=== PATIENT | female | born 1985 | race African-American/Black ===

== ENCOUNTER 2016-04-24 16:26 | Inpatient (IN) | payer MEDICAID, OTHER ==
[~2016-04-24] VITALS: Ht 165.1 cm; Wt 111.1 kg
[2016-04-24] MEDS ORDERED: ONDANSETRON HCL/PF 4 MG/2 ML VIAL IVP ONE (17:00)
[2016-04-24] MEDS ORDERED: MORPHINE SULFATE INJ 2 MG/ML DISP.SYRIN IV ONE ×2 (17:00→20:00)
[2016-04-24] MEDS ORDERED: NITROGLYCERIN PACKET 1 GM PACKET TD ONE (17:00)
[2016-04-24] MEDS ORDERED: VANCOMYCIN 1 GM in IV D5W 250 ML IV ONE (17:00)
[2016-04-24 17:35] LABS: BASOPHILS # (AUTO) 0.3 /CMM (0.0-0.2); BASOPHILS % (AUTO) 4.3 % (0.0-2.0); DIFF TOTAL % 100 %; EOSINOPHILS # (AUTO) 0.4 /CMM (0.0-0.7); EOSINOPHILS % (AUTO) 5.3 % (0.0-6.0); HEMATOCRIT 32 % (33-45); HEMOGLOBIN 10.7 g/dL (11.5-14.8); LYMPHOCYTES # (AUTO) 1.4 /CMM (0.8-4.8); LYMPHOCYTES % (AUTO) 20.8 % (20.0-44.0); MEAN CORPUSCULAR HEMOGLOBIN 33 PG (26.0-33.0); MEAN CORPUSCULAR HGB CONC 34 g/dl (31.0-36.0); MEAN CORPUSCULAR VOLUME 97 fL (82-100); MONOCYTES # (AUTO) 0.5 /CMM (0.1-1.30); MONOCYTES % (AUTO) 7.3 % (2.0-12.0); NEUTROPHILS % (AUTO) 62.3 % (43.0-81.0); PLATELET COUNT (AUTO) 155 /CMM (150-450); RED BLOOD CELL COUNT(AUTO) 3.29 MIL/uL (4.0-5.2); WHITE BLOOD COUNT (AUTO) 6.6 K/uL (4.3-11.0)
[2016-04-24 17:44] LABS: ANION GAP 15 (5-14); CALCIUM, SERUM 8.2 mg/dL (8.5-10.1); CARBON DIOXIDE 22 mmol/L (21-32); CHLORIDE 105 mmol/L (98-107); CREATININE 5.8 mg/dL (0.6-1.3); GFR 8 mL/min (>60); GLUCOSE 95 mg/dL (74-106); POTASSIUM 3.3 mmol/L (3.5-5.1); SODIUM SERUM 139 mmol/L (136-145); UREA NITROGEN, BLOOD 76 mg/dL (7-18)
[2016-04-24 17:47] LABS: INR 0.93 (0.87-1.13); PROTHROMBIN TIME 9.8 SECS (9.5-12.7)
[2016-04-24 17:52] LABS: TROPONIN I < 0.017 ng/mL (0.00-0.056)
[2016-04-24 17:56] LABS: ALANINE AMINOTRANSFERASE 11 U/L (12-78); ALBUMIN 3.8 g/dL (3.4-5.0); ASPARTATE AMINOTRANSFERASE 17 U/L (15-37); BILIRUBIN,DIRECT 0.1 mg/dL (0.0-0.2); BILIRUBIN,TOTAL 0.4 mg/dL (0.2-1.0); INDIRECT BILIRUBIN 0.3 mg/dL (0.0-1.1); TOTAL PROTEIN, SERUM 7.5 g/dL (6.4-8.2)
[2016-04-24 18:10] LABS: LACTIC ACID 0.8 mmol/L (0.4-2.0)
[2016-04-24] MEDS ORDERED: MORPHINE SULFATE INJ 4 MG/ML DISP.SYRIN ONE ×2 (18:18→20:14)
[2016-04-24] MEDS ORDERED: ONDANSETRON HCL/PF 4 MG/2 ML VIAL ONE (18:18)
[2016-04-24] MEDS ORDERED: NITROGLYCERIN PACKET 1 GM PACKET ONE (18:18)
[2016-04-24] MEDS ORDERED: IV SET PRIMARY PUMP SET 1 EA INFUS.SET MC ONE (18:19)
[2016-04-24] MEDS ORDERED: ASPI325T2 PO (18:37)
[2016-04-24] MEDS ORDERED: CARV25TA2 PO (18:37)
[2016-04-24] MEDS ORDERED: TOPI-67 PO (18:37)
[2016-04-24] MEDS ORDERED: APIX5TAB PO (18:37)
[2016-04-24] MEDS ORDERED: NIFE60TA83 PO (18:37)
[2016-04-24] MEDS ORDERED: SERT50TA PO (18:37)
[2016-04-24] MEDS ORDERED: HYDR-4077 PO (18:37)
[2016-04-24] MEDS ORDERED: SEVE800T PO (18:37)
[2016-04-24] MEDS ORDERED: AMIT25TA9 PO (18:37)
[2016-04-24] MEDS ORDERED: LABE200T PO (18:42)
[2016-04-24] MEDS ORDERED: CT SWABBABLE VALVE TRANS SET 1 EA INFUS.SET MC ONE (19:03)
[2016-04-24] MEDS ORDERED: IV NS 0.9% 250 ML IV ONE (19:03)
[2016-04-24] MEDS ORDERED: IOHEXOL-350 100 ML VIAL IV ONE (19:03)
[2016-04-24] MEDS ORDERED: MORPHINE SULFATE INJ 2 MG/ML DISP.SYRIN ONE (20:14)
[2016-04-24] MEDS ORDERED: ACETAMINOPHEN 325 MG TABLET PO PRN (20:30)
[2016-04-24] MEDS ORDERED: ONDANSETRON HCL/PF 4 MG/2 ML VIAL IVP PRN (20:30)
[2016-04-24] MEDS ORDERED: FEE PK DOSING 1 MIN EA MC ONE (20:49)
[2016-04-24] MEDS ORDERED: VANCOMYCIN 500 MG in IV D5W 100 ML IV PRN (21:00)
[2016-04-24 21:20] VITALS: BP 158/107
[2016-04-24] MEDS: CARVEDILOL 12.5 MG TABLET PO SCH (21:56)
[2016-04-24] MEDS: APIXABAN 5 MG TABLET PO SCH (21:56)
[2016-04-24] MEDS: HYDROCODONE/APAP 10/325MG 1 EA TABLET PO PRN (21:59)
[2016-04-25 01:20] VITALS: BP 136/82
[2016-04-25] MEDS ORDERED: MORPHINE SULFATE INJ 4 MG/ML DISP.SYRIN ONE (01:34)
[2016-04-25] MEDS: MORPHINE SULFATE INJ 4 MG/ML DISP.SYRIN IV PRN ×3 (01:56→21:57)
[2016-04-25 04:00] VITALS: BP 133/85
[2016-04-25 08:00] VITALS: BP 131/84
[2016-04-25 08:27] LABS: BASOPHILS % (AUTO) 0.2 % (0.0-2.0); DIFF TOTAL % 100 %; EOSINOPHILS # (AUTO) 0.1 /CMM (0.0-0.7); EOSINOPHILS % (AUTO) 1.6 % (0.0-6.0); HEMATOCRIT 27 % (33-45); HEMOGLOBIN 9.1 g/dL (11.5-14.8); LYMPHOCYTES # (AUTO) 0.5 /CMM (0.8-4.8); LYMPHOCYTES % (AUTO) 8.9 % (20.0-44.0); MEAN CORPUSCULAR HEMOGLOBIN 32 PG (26.0-33.0); MEAN CORPUSCULAR HGB CONC 34 g/dl (31.0-36.0); MEAN CORPUSCULAR VOLUME 96 fL (82-100); MONOCYTES # (AUTO) 0.5 /CMM (0.1-1.30); MONOCYTES % (AUTO) 8.2 % (2.0-12.0); NEUTROPHILS % (AUTO) 81.1 % (43.0-81.0); PLATELET COUNT (AUTO) 140 /CMM (150-450); RED BLOOD CELL COUNT(AUTO) 2.83 MIL/uL (4.0-5.2); WHITE BLOOD COUNT (AUTO) 6.2 K/uL (4.3-11.0)
[2016-04-25] MEDS: AMITRIPTYLINE HCL 25 MG TABLET PO SCH (08:35)
[2016-04-25] MEDS: SEVELAMER CARBONATE 800 MG TABLET PO SCH ×3 (08:35→18:25)
[2016-04-25] MEDS: SERTRALINE HCL 50 MG TABLET PO SCH (08:35)
[2016-04-25] MEDS: ASPIRIN 325 MG TABLET PO SCH (08:35)
[2016-04-25] MEDS: TOPIRAMATE 25 MG TABLET PO SCH ×2 (08:36→16:21)
[2016-04-25] MEDS: NIFEdipine XL (30MG) 30 MG TAB PO SCH (08:37)
[2016-04-25] MEDS: LABETALOL HCL (100MG) 100 MG TABLET PO SCH (08:41)
[2016-04-25] MEDS: CARVEDILOL 12.5 MG TABLET PO SCH ×2 (08:42→20:34)
[2016-04-25] MEDS: APIXABAN 5 MG TABLET PO SCH ×2 (08:55→16:21)
[2016-04-25 08:59] LABS: ALBUMIN 3.1 g/dL (3.4-5.0); BILIRUBIN,TOTAL 0.5 mg/dL (0.2-1.0); CALCIUM, SERUM 7.7 mg/dL (8.5-10.1); CREATININE 5.8 mg/dL (0.6-1.3); PHOSPHORUS 4.7 mg/dL (2.5-4.9); POTASSIUM 3.2 mmol/L (3.5-5.1); TOTAL PROTEIN, SERUM 6.5 g/dL (6.4-8.2)
[2016-04-25 09:11] LABS: THYROID STIMULATING HORMONE 1.903 uIU/mL (0.358-3.74)
[2016-04-25] MEDS: hydrALAZINE HCL 50 MG TABLET PO SCH ×2 (09:11→18:22)
[2016-04-25] MEDS ORDERED: EPOETIN ALFA (10,000 UNIT) 10,000 UNIT/ML VIAL SQ ONE (14:00)
[2016-04-25] MEDS ORDERED: Magnesium 1GM/D5W 100ML PREMIX 100 ML IV SCH (14:00)
[2016-04-25] MEDS ORDERED: IV SET PRIMARY PUMP SET 1 EA INFUS.SET MC ONE (14:15)
[2016-04-25 16:00] VITALS: BP 149/89
[2016-04-25 19:52] VITALS: BP 142/63
[2016-04-25 20:00] VITALS: BP 142/63
[2016-04-25] MEDS: HYDROCODONE/APAP 10/325MG 1 EA TABLET PO PRN (23:55)
[2016-04-26] MEDS: MORPHINE SULFATE INJ 4 MG/ML DISP.SYRIN IV PRN ×5 (03:34→22:41)
[2016-04-26] MEDS: HYDROCODONE/APAP 10/325MG 1 EA TABLET PO PRN (06:24)
[2016-04-26 07:24] LABS: BASOPHILS % (AUTO) 0.4 % (0.0-2.0); DIFF TOTAL % 100 %; EOSINOPHILS # (AUTO) 0.1 /CMM (0.0-0.7); EOSINOPHILS % (AUTO) 2.5 % (0.0-6.0); HEMATOCRIT 29 % (33-45); HEMOGLOBIN 9.8 g/dL (11.5-14.8); LYMPHOCYTES # (AUTO) 0.6 /CMM (0.8-4.8); LYMPHOCYTES % (AUTO) 15.8 % (20.0-44.0); MEAN CORPUSCULAR HEMOGLOBIN 33 PG (26.0-33.0); MEAN CORPUSCULAR HGB CONC 34 g/dl (31.0-36.0); MEAN CORPUSCULAR VOLUME 97 fL (82-100); MONOCYTES # (AUTO) 0.4 /CMM (0.1-1.30); MONOCYTES % (AUTO) 12.3 % (2.0-12.0); NEUTROPHILS # (AUTO) 2.4 /CMM (1.8-8.9); PLATELET COUNT (AUTO) 137 /CMM (150-450); RED BLOOD CELL COUNT(AUTO) 2.98 MIL/uL (4.0-5.2); WHITE BLOOD COUNT (AUTO) 3.5 K/uL (4.3-11.0)
[2016-04-26 07:38] LABS: INR 0.98 (0.87-1.13); PROTHROMBIN TIME 10.3 SECS (9.5-12.7)
[2016-04-26 08:00] VITALS: BP 138/58
[2016-04-26 08:03] LABS: PHOSPHORUS 4.2 mg/dL (2.5-4.9); POTASSIUM 3.1 mmol/L (3.5-5.1)
[2016-04-26] MEDS: hydrALAZINE HCL 50 MG TABLET PO SCH ×2 (09:00→18:45)
[2016-04-26] MEDS: AMITRIPTYLINE HCL 25 MG TABLET PO SCH (09:56)
[2016-04-26] MEDS: SEVELAMER CARBONATE 800 MG TABLET PO SCH ×3 (09:56→18:12)
[2016-04-26] MEDS: ASPIRIN 325 MG TABLET PO SCH (09:56)
[2016-04-26] MEDS: APIXABAN 5 MG TABLET PO SCH ×2 (09:56→18:10)
[2016-04-26] MEDS: SERTRALINE HCL 50 MG TABLET PO SCH (09:57)
[2016-04-26] MEDS: TOPIRAMATE 25 MG TABLET PO SCH ×2 (09:57→18:11)
[2016-04-26] MEDS ORDERED: SECONDARY IV SET 1 EA INFUS.SET MC ONE (14:10)
[2016-04-26] MEDS: NIFEdipine XL (30MG) 30 MG TAB PO SCH (14:11)
[2016-04-26] MEDS: CARVEDILOL 12.5 MG TABLET PO SCH ×2 (14:11→21:15)
[2016-04-26 16:00] VITALS: BP 130/70
[2016-04-26] MEDS: LABETALOL HCL (100MG) 100 MG TABLET PO SCH (18:11)
[2016-04-26 20:00] VITALS: BP 128/78
[2016-04-27] MEDS: MORPHINE SULFATE INJ 4 MG/ML DISP.SYRIN IV PRN ×5 (02:46→21:18)
[2016-04-27 07:30] LABS: BASOPHILS % (AUTO) 0.7 % (0.0-2.0); DIFF TOTAL % 100 %; EOSINOPHILS # (AUTO) 0.3 /CMM (0.0-0.7); EOSINOPHILS % (AUTO) 7.4 % (0.0-6.0); HEMATOCRIT 30 % (33-45); LYMPHOCYTES % (AUTO) 29.9 % (20.0-44.0); MEAN CORPUSCULAR HEMOGLOBIN 33 PG (26.0-33.0); MEAN CORPUSCULAR HGB CONC 34 g/dl (31.0-36.0); MEAN CORPUSCULAR VOLUME 97 fL (82-100); MONOCYTES # (AUTO) 0.5 /CMM (0.1-1.30); MONOCYTES % (AUTO) 14.6 % (2.0-12.0); NEUTROPHILS # (AUTO) 1.6 /CMM (1.8-8.9); NEUTROPHILS % (AUTO) 47.4 % (43.0-81.0); PLATELET COUNT (AUTO) 148 /CMM (150-450); RED BLOOD CELL COUNT(AUTO) 3.05 MIL/uL (4.0-5.2); WHITE BLOOD COUNT (AUTO) 3.5 K/uL (4.3-11.0)
[2016-04-27 08:00] VITALS: BP 113/74
[2016-04-27 08:09] LABS: CALCIUM, SERUM 8.2 mg/dL (8.5-10.1); CREATININE 7.2 mg/dL (0.6-1.3); POTASSIUM 3.5 mmol/L (3.5-5.1)
[2016-04-27] MEDS: CARVEDILOL 12.5 MG TABLET PO SCH ×2 (08:20→21:18)
[2016-04-27] MEDS: SERTRALINE HCL 50 MG TABLET PO SCH (08:21)
[2016-04-27] MEDS: SEVELAMER CARBONATE 800 MG TABLET PO SCH ×4 (08:21→17:48)
[2016-04-27] MEDS: AMITRIPTYLINE HCL 25 MG TABLET PO SCH (08:21)
[2016-04-27] MEDS: NIFEdipine XL (30MG) 30 MG TAB PO SCH (08:21)
[2016-04-27] MEDS: hydrALAZINE HCL 50 MG TABLET PO SCH ×3 (08:21→17:48)
[2016-04-27] MEDS: ASPIRIN 325 MG TABLET PO SCH (08:22)
[2016-04-27] MEDS: TOPIRAMATE 25 MG TABLET PO SCH ×3 (08:22→17:48)
[2016-04-27] MEDS: LABETALOL HCL (100MG) 100 MG TABLET PO SCH (08:22)
[2016-04-27] MEDS: APIXABAN 5 MG TABLET PO SCH ×2 (08:23→17:47)
[2016-04-27 12:28] VITALS: BP 117/62
[2016-04-27 16:00] VITALS: BP 121/66
[2016-04-27] MEDS: HYDROCODONE/APAP 10/325MG 1 EA TABLET PO PRN (17:47)
[2016-04-27 20:00] VITALS: BP 109/61
[2016-04-28] MEDS: MORPHINE SULFATE INJ 4 MG/ML DISP.SYRIN IV PRN ×5 (02:06→21:29)
[2016-04-28 08:00] VITALS: BP 130/80
[2016-04-28 08:01] LABS: BASOPHILS % (AUTO) 0.5 % (0.0-2.0); DIFF TOTAL % 100 %; EOSINOPHILS # (AUTO) 0.3 /CMM (0.0-0.7); EOSINOPHILS % (AUTO) 7.9 % (0.0-6.0); HEMATOCRIT 28 % (33-45); HEMOGLOBIN 9.4 g/dL (11.5-14.8); LYMPHOCYTES # (AUTO) 1.2 /CMM (0.8-4.8); LYMPHOCYTES % (AUTO) 28.4 % (20.0-44.0); MEAN CORPUSCULAR HEMOGLOBIN 33 PG (26.0-33.0); MEAN CORPUSCULAR HGB CONC 34 g/dl (31.0-36.0); MEAN CORPUSCULAR VOLUME 97 fL (82-100); MONOCYTES # (AUTO) 0.5 /CMM (0.1-1.30); MONOCYTES % (AUTO) 12.7 % (2.0-12.0); NEUTROPHILS # (AUTO) 2.1 /CMM (1.8-8.9); NEUTROPHILS % (AUTO) 50.5 % (43.0-81.0); PLATELET COUNT (AUTO) 166 /CMM (150-450); RED BLOOD CELL COUNT(AUTO) 2.83 MIL/uL (4.0-5.2); WHITE BLOOD COUNT (AUTO) 4.3 K/uL (4.3-11.0)
[2016-04-28 08:13] LABS: CALCIUM, SERUM 8.1 mg/dL (8.5-10.1); POTASSIUM 3.8 mmol/L (3.5-5.1)
[2016-04-28 08:27] LABS: CREATININE 8.8 mg/dL (0.6-1.3)
[2016-04-28] MEDS: LABETALOL HCL (100MG) 100 MG TABLET PO SCH (08:37)
[2016-04-28] MEDS: ASPIRIN 325 MG TABLET PO SCH (08:38)
[2016-04-28] MEDS: CARVEDILOL 12.5 MG TABLET PO SCH ×2 (08:39→21:29)
[2016-04-28] MEDS: AMITRIPTYLINE HCL 25 MG TABLET PO SCH (08:39)
[2016-04-28] MEDS: SERTRALINE HCL 50 MG TABLET PO SCH (08:39)
[2016-04-28] MEDS: HYDROCODONE/APAP 10/325MG 1 EA TABLET PO PRN ×2 (08:40→15:23)
[2016-04-28] MEDS: NIFEdipine XL (30MG) 30 MG TAB PO SCH (08:41)
[2016-04-28] MEDS: APIXABAN 5 MG TABLET PO SCH ×2 (09:49→16:59)
[2016-04-28] MEDS: SEVELAMER CARBONATE 800 MG TABLET PO SCH ×2 (13:00→18:17)
[2016-04-28 16:00] VITALS: BP 121/57
[2016-04-28] MEDS: hydrALAZINE HCL 50 MG TABLET PO SCH (16:58)
[2016-04-28] MEDS: TOPIRAMATE 25 MG TABLET PO SCH (16:58)
[2016-04-28 20:00] VITALS: BP 121/80
[2016-04-28 20:27] VITALS: BP 121/80
[2016-04-28] MEDS: ZOLPIDEM TARTRATE 5 MG TABLET PO PRN (21:36)
[2016-04-29] MEDS: MORPHINE SULFATE INJ 4 MG/ML DISP.SYRIN IV PRN ×5 (01:38→19:41)
[2016-04-29 07:40] LABS: BASOPHILS % (AUTO) 0.3 % (0.0-2.0); DIFF TOTAL % 100 %; EOSINOPHILS # (AUTO) 0.3 /CMM (0.0-0.7); EOSINOPHILS % (AUTO) 8.3 % (0.0-6.0); HEMATOCRIT 26 % (33-45); HEMOGLOBIN 8.6 g/dL (11.5-14.8); LYMPHOCYTES # (AUTO) 1.2 /CMM (0.8-4.8); LYMPHOCYTES % (AUTO) 31.1 % (20.0-44.0); MEAN CORPUSCULAR HEMOGLOBIN 33 PG (26.0-33.0); MEAN CORPUSCULAR HGB CONC 34 g/dl (31.0-36.0); MEAN CORPUSCULAR VOLUME 96 fL (82-100); MONOCYTES # (AUTO) 0.4 /CMM (0.1-1.30); MONOCYTES % (AUTO) 9.9 % (2.0-12.0); NEUTROPHILS % (AUTO) 50.4 % (43.0-81.0); PLATELET COUNT (AUTO) 174 /CMM (150-450); RED BLOOD CELL COUNT(AUTO) 2.66 MIL/uL (4.0-5.2)
[2016-04-29 08:00] VITALS: BP 149/96
[2016-04-29 08:35] LABS: CALCIUM, SERUM 8.2 mg/dL (8.5-10.1); POTASSIUM 4.1 mmol/L (3.5-5.1)
[2016-04-29] MEDS: SEVELAMER CARBONATE 800 MG TABLET PO SCH ×3 (08:44→18:15)
[2016-04-29] MEDS: AMITRIPTYLINE HCL 25 MG TABLET PO SCH (08:44)
[2016-04-29] MEDS: LABETALOL HCL (100MG) 100 MG TABLET PO SCH (08:44)
[2016-04-29] MEDS: ASPIRIN 325 MG TABLET PO SCH (08:44)
[2016-04-29] MEDS: SERTRALINE HCL 50 MG TABLET PO SCH (08:45)
[2016-04-29] MEDS: hydrALAZINE HCL 50 MG TABLET PO SCH ×2 (08:45→18:16)
[2016-04-29] MEDS: TOPIRAMATE 25 MG TABLET PO SCH ×2 (08:45→18:15)
[2016-04-29] MEDS: CARVEDILOL 12.5 MG TABLET PO SCH ×2 (08:45→21:45)
[2016-04-29] MEDS: NIFEdipine XL (30MG) 30 MG TAB PO SCH (08:45)
[2016-04-29] MEDS: APIXABAN 5 MG TABLET PO SCH ×2 (08:49→18:17)
[2016-04-29] MEDS: HYDROCODONE/APAP 10/325MG 1 EA TABLET PO PRN (08:49)
[2016-04-29 09:03] LABS: CREATININE 9.4 mg/dL (0.6-1.3)
[2016-04-29] MEDS ORDERED: VANCOMYCIN 500 MG in IV D5W 100 ML IV SCH (13:00)
[2016-04-29 16:00] VITALS: BP 128/66
[2016-04-29 20:00] VITALS: BP 146/87
[2016-04-29] MEDS: ZOLPIDEM TARTRATE 5 MG TABLET PO PRN (21:45)
[2016-04-30] MEDS: MORPHINE SULFATE INJ 4 MG/ML DISP.SYRIN IV PRN ×3 (00:13→09:01)
[2016-04-30 07:10] LABS: BASOPHILS % (AUTO) 0.9 % (0.0-2.0); DIFF TOTAL % 100 %; EOSINOPHILS # (AUTO) 0.4 /CMM (0.0-0.7); EOSINOPHILS % (AUTO) 8.8 % (0.0-6.0); HEMATOCRIT 28 % (33-45); HEMOGLOBIN 9.4 g/dL (11.5-14.8); LYMPHOCYTES # (AUTO) 1.5 /CMM (0.8-4.8); LYMPHOCYTES % (AUTO) 34.1 % (20.0-44.0); MEAN CORPUSCULAR HEMOGLOBIN 32 PG (26.0-33.0); MEAN CORPUSCULAR HGB CONC 34 g/dl (31.0-36.0); MEAN CORPUSCULAR VOLUME 96 fL (82-100); MONOCYTES # (AUTO) 0.4 /CMM (0.1-1.30); MONOCYTES % (AUTO) 10.4 % (2.0-12.0); NEUTROPHILS % (AUTO) 45.8 % (43.0-81.0); PLATELET COUNT (AUTO) 224 /CMM (150-450); RED BLOOD CELL COUNT(AUTO) 2.93 MIL/uL (4.0-5.2); WHITE BLOOD COUNT (AUTO) 4.3 K/uL (4.3-11.0)
[2016-04-30 07:36] LABS: CALCIUM, SERUM 8.4 mg/dL (8.5-10.1); PHOSPHORUS 5.7 mg/dL (2.5-4.9); POTASSIUM 4.1 mmol/L (3.5-5.1)
[2016-04-30 08:00] VITALS: BP 146/96
[2016-04-30 08:02] LABS: CREATININE 9.1 mg/dL (0.6-1.3)
[2016-04-30] MEDS: SEVELAMER CARBONATE 800 MG TABLET PO SCH ×3 (08:41→17:28)
[2016-04-30] MEDS: AMITRIPTYLINE HCL 25 MG TABLET PO SCH (08:41)
[2016-04-30] MEDS: ASPIRIN 325 MG TABLET PO SCH (08:41)
[2016-04-30] MEDS: TOPIRAMATE 25 MG TABLET PO SCH ×2 (08:41→16:37)
[2016-04-30] MEDS: SERTRALINE HCL 50 MG TABLET PO SCH (08:41)
[2016-04-30] MEDS: APIXABAN 5 MG TABLET PO SCH ×2 (08:41→16:36)
[2016-04-30] MEDS: hydrALAZINE HCL 50 MG TABLET PO SCH ×2 (08:42→16:39)
[2016-04-30] MEDS: CARVEDILOL 12.5 MG TABLET PO SCH ×2 (08:42→19:51)
[2016-04-30] MEDS: NIFEdipine XL (30MG) 30 MG TAB PO SCH (08:42)
[2016-04-30] MEDS: LABETALOL HCL (100MG) 100 MG TABLET PO SCH (08:44)
[2016-04-30] MEDS: AZITHROMYCIN 250 MG TABLET PO SCH (10:41)
[2016-04-30] MEDS: HYDROMORPHONE 1 MG/1 ML DISP.SYRIN IV PRN ×4 (10:50→23:58)
[2016-04-30 16:00] VITALS: BP_SYST 101; BP_DIAS 52; BP_DIAS 55
[2016-04-30 18:00] VITALS: BP 135/90
[2016-04-30 21:50] VITALS: BP 134/72
[2016-04-30 22:00] VITALS: BP 134/72
[2016-05-01] MEDS: HYDROCODONE/APAP 10/325MG 1 EA TABLET PO PRN (01:08)
[2016-05-01] MEDS: HYDROMORPHONE 1 MG/1 ML DISP.SYRIN IV PRN ×5 (04:05→20:33)
[2016-05-01 07:28] LABS: CALCIUM, SERUM 8.4 mg/dL (8.5-10.1); POTASSIUM 4.1 mmol/L (3.5-5.1)
[2016-05-01 07:33] LABS: CREATININE 9.3 mg/dL (0.6-1.3)
[2016-05-01 08:00] VITALS: BP 162/100
[2016-05-01] MEDS ORDERED: HYDROMORPHONE INJ 2 MG/ML DISP.SYRIN IV ONE (08:00)
[2016-05-01] MEDS: SEVELAMER CARBONATE 800 MG TABLET PO SCH ×3 (08:31→17:26)
[2016-05-01] MEDS: ASPIRIN 325 MG TABLET PO SCH (08:31)
[2016-05-01] MEDS: NIFEdipine XL (30MG) 30 MG TAB PO SCH (08:31)
[2016-05-01] MEDS: AMITRIPTYLINE HCL 25 MG TABLET PO SCH (08:31)
[2016-05-01] MEDS: SERTRALINE HCL 50 MG TABLET PO SCH (08:31)
[2016-05-01] MEDS: TOPIRAMATE 25 MG TABLET PO SCH ×2 (08:31→16:23)
[2016-05-01] MEDS: LABETALOL HCL (100MG) 100 MG TABLET PO SCH (08:32)
[2016-05-01] MEDS: hydrALAZINE HCL 50 MG TABLET PO SCH ×2 (08:32→17:27)
[2016-05-01] MEDS: CARVEDILOL 12.5 MG TABLET PO SCH ×2 (08:33→20:33)
[2016-05-01] MEDS: APIXABAN 5 MG TABLET PO SCH ×2 (08:35→16:23)
[2016-05-01] MEDS: AZITHROMYCIN 250 MG TABLET PO SCH (10:14)
[2016-05-01 16:00] VITALS: BP 102/52
[2016-05-01 20:15] VITALS: BP 122/65
[2016-05-01 20:32] VITALS: BP 122/65
[2016-05-01] MEDS: ZOLPIDEM TARTRATE 5 MG TABLET PO PRN (21:58)
[2016-05-02] MEDS: HYDROMORPHONE 1 MG/1 ML DISP.SYRIN IV PRN ×4 (00:29→22:12)
[2016-05-02] MEDS: HYDROCODONE/APAP 10/325MG 1 EA TABLET PO PRN ×2 (02:36→20:22)
[2016-05-02] MEDS: AZITHROMYCIN 250 MG TABLET PO SCH (05:28)
[2016-05-02 07:18] LABS: CALCIUM, SERUM 8.8 mg/dL (8.5-10.1); POTASSIUM 4.1 mmol/L (3.5-5.1)
[2016-05-02 07:19] LABS: CREATININE 8.8 mg/dL (0.6-1.3)
[2016-05-02 07:27] LABS: INR 0.93 (0.87-1.13)
[2016-05-02 08:00] VITALS: BP 134/89
[2016-05-02] MEDS: SEVELAMER CARBONATE 800 MG TABLET PO SCH ×3 (08:00→17:21)
[2016-05-02] MEDS: ASPIRIN 325 MG TABLET PO SCH (09:00)
[2016-05-02] MEDS: SERTRALINE HCL 50 MG TABLET PO SCH (09:00)
[2016-05-02] MEDS: AMITRIPTYLINE HCL 25 MG TABLET PO SCH (09:00)
[2016-05-02] MEDS: hydrALAZINE HCL 50 MG TABLET PO SCH ×2 (09:00→17:21)
[2016-05-02] MEDS: NIFEdipine XL (30MG) 30 MG TAB PO SCH (09:00)
[2016-05-02] MEDS: TOPIRAMATE 25 MG TABLET PO SCH ×2 (09:00→17:21)
[2016-05-02] MEDS: CARVEDILOL 12.5 MG TABLET PO SCH ×2 (09:00→20:19)
[2016-05-02] MEDS: LABETALOL HCL (100MG) 100 MG TABLET PO SCH (09:00)
[2016-05-02] MEDS: APIXABAN 5 MG TABLET PO SCH ×2 (09:00→17:00)
[2016-05-02] MEDS ORDERED: LIDOCAINE HCL/PF 1% 30 ML SDV ONE (12:26)
[2016-05-02] MEDS ORDERED: HEPARIN SODIUM, PORCINE 1,000 UNIT/ML VIAL ONE (12:26)
[2016-05-02 16:00] VITALS: BP 152/104
[2016-05-02] MEDS ORDERED: VANCOMYCIN 1 GM in IV D5W 250 ML IV ONE (18:00)
[2016-05-02] MEDS ORDERED: IV SET PRIMARY PUMP SET 1 EA INFUS.SET MC ONE (19:52)
[2016-05-02 20:38] VITALS: BP 145/77
[2016-05-03] MEDS: HYDROMORPHONE 1 MG/1 ML DISP.SYRIN IV PRN ×4 (02:53→21:05)
[2016-05-03] MEDS ORDERED: BISACODYL SUPP (10 MG) 10 MG/SUPP.RECT SUPP.RECT RC ONE ×2 (04:31→05:00)
[2016-05-03] MEDS ORDERED: VANCOMYCIN 500 MG in IV D5W 100 ML IV PRN (06:00)
[2016-05-03 07:58] LABS: CALCIUM, SERUM 8.8 mg/dL (8.5-10.1); POTASSIUM 4.2 mmol/L (3.5-5.1)
[2016-05-03 08:00] VITALS: BP 142/90
[2016-05-03] MEDS: SEVELAMER CARBONATE 800 MG TABLET PO SCH ×3 (08:00→18:00)
[2016-05-03 08:06] LABS: CREATININE 8.3 mg/dL (0.6-1.3)
[2016-05-03] MEDS: AMITRIPTYLINE HCL 25 MG TABLET PO SCH (09:00)
[2016-05-03] MEDS: CARVEDILOL 12.5 MG TABLET PO SCH ×2 (09:00→21:09)
[2016-05-03] MEDS: ASPIRIN 325 MG TABLET PO SCH (09:00)
[2016-05-03] MEDS: APIXABAN 5 MG TABLET PO SCH ×2 (09:00→17:00)
[2016-05-03] MEDS: TOPIRAMATE 25 MG TABLET PO SCH ×2 (09:00→16:19)
[2016-05-03] MEDS: hydrALAZINE HCL 50 MG TABLET PO SCH ×3 (09:00→23:31)
[2016-05-03] MEDS: NIFEdipine XL (30MG) 30 MG TAB PO SCH (09:00)
[2016-05-03] MEDS: LABETALOL HCL (100MG) 100 MG TABLET PO SCH (09:00)
[2016-05-03] MEDS: SERTRALINE HCL 50 MG TABLET PO SCH (09:00)
[2016-05-03] MEDS: AZITHROMYCIN 250 MG TABLET PO SCH (10:00)
[2016-05-03] MEDS ORDERED: HEPARIN SODIUM, PORCINE 1,000 UNIT/ML VIAL ONE (12:09)
[2016-05-03] MEDS ORDERED: LIDOCAINE HCL/PF 1% 30 ML SDV ONE (12:10)
[2016-05-03] MEDS ORDERED: TALC 5 G/VIAL ML IX ONE (12:30)
[2016-05-03] MEDS ORDERED: TALC IV ONE (12:30)
[2016-05-03] MEDS ORDERED: NS 0.9% IV ONE (12:30)
[2016-05-03] MEDS ORDERED: FENTANYL PF 100MCG/2ML AMPUL ONE (14:09)
[2016-05-03] MEDS ORDERED: HYDROMORPHONE 1 MG/1 ML DISP.SYRIN ONE (14:21)
[2016-05-03 16:00] VITALS: BP 168/124
[2016-05-03] MEDS: HYDROCODONE/APAP 10/325MG 1 EA TABLET PO PRN ×2 (18:25→23:04)
[2016-05-03 20:00] VITALS: BP 183/115
[2016-05-04] MEDS: HYDROMORPHONE 1 MG/1 ML DISP.SYRIN IV PRN ×5 (01:30→20:02)
[2016-05-04] MEDS: HYDROCODONE/APAP 10/325MG 1 EA TABLET PO PRN ×2 (03:03→06:18)
[2016-05-04 06:56] LABS: CALCIUM, SERUM 8.6 mg/dL (8.5-10.1); CREATININE 6.3 mg/dL (0.6-1.3); POTASSIUM 3.9 mmol/L (3.5-5.1)
[2016-05-04 08:00] VITALS: BP 177/101
[2016-05-04] MEDS: SEVELAMER CARBONATE 800 MG TABLET PO SCH ×3 (08:28→17:39)
[2016-05-04] MEDS: ASPIRIN 325 MG TABLET PO SCH (08:28)
[2016-05-04] MEDS: hydrALAZINE HCL 50 MG TABLET PO SCH ×2 (08:28→17:39)
[2016-05-04] MEDS: NIFEdipine XL (30MG) 30 MG TAB PO SCH (08:29)
[2016-05-04] MEDS: APIXABAN 5 MG TABLET PO SCH ×2 (08:29→17:49)
[2016-05-04] MEDS: TOPIRAMATE 25 MG TABLET PO SCH ×2 (08:29→17:39)
[2016-05-04] MEDS: CARVEDILOL 12.5 MG TABLET PO SCH ×2 (08:29→21:47)
[2016-05-04] MEDS: AMITRIPTYLINE HCL 25 MG TABLET PO SCH (08:29)
[2016-05-04] MEDS: SERTRALINE HCL 50 MG TABLET PO SCH (08:30)
[2016-05-04] MEDS: LABETALOL HCL (100MG) 100 MG TABLET PO SCH (08:30)
[2016-05-04] MEDS ORDERED: LORAZEPAM 1 MG TABLET PO PRN (10:30)
[2016-05-04] MEDS: AZITHROMYCIN 250 MG TABLET PO SCH (11:15)
[2016-05-04 16:00] VITALS: BP 146/95
[2016-05-04 20:00] VITALS: BP_SYST 152; BP_SYST 181; BP_DIAS 100; BP_DIAS 68
[2016-05-04 21:47] VITALS: BP 165/82
== END 2016-05-04 23:50 | disposition home or self-care (01) | DRG 173 ==
LOC: ER 16:36 → TELE 19:38 → MED 04-25 09:16
PROVIDERS: ADMIT Nurse Practitioner Acute Care; ATTEND Nurse Practitioner Acute Care
DX: T82.7XXA Infection and inflammatory reaction due to other cardiac and vascular devices, implants and grafts, initial encounter (principal); I50.33 Acute on chronic diastolic (congestive) heart failure; J15.9 Unspecified bacterial pneumonia; N18.6 End stage renal disease; I12.0 Hypertensive chronic kidney disease with stage 5 chronic kidney disease or end stage renal disease; T82.848A Pain due to vascular prosthetic devices, implants and grafts, initial encounter; I82.C12 Acute embolism and thrombosis of left internal jugular vein; E66.01 Morbid (severe) obesity due to excess calories; Z99.2 Dependence on renal dialysis; Z86.73 Personal history of transient ischemic attack (TIA), and cerebral infarction without residual deficits; Z68.38 Body mass index [BMI] 38.0-38.9, adult; Y92.009 Unspecified place in unspecified non-institutional (private) residence as the place of occurrence of the external cause; E87.6 Hypokalemia; D63.8 Anemia in other chronic diseases classified elsewhere; G51.0 Bell's palsy; E83.9 Disorder of mineral metabolism, unspecified; G47.33 Obstructive sleep apnea (adult) (pediatric); E83.42 Hypomagnesemia; F32.9 Major depressive disorder, single episode, unspecified; I13.2 Hypertensive heart and chronic kidney disease with heart failure and with stage 5 chronic kidney disease, or end stage renal disease; Z68.41 Body mass index [BMI] 40.0-44.9, adult; R78.81 Bacteremia; Y84.9 Medical procedure, unspecified as the cause of abnormal reaction of the patient, or of later complication, without mention of misadventure at the time of the procedure; X58.XXXA Exposure to other specified factors, initial encounter; Y93.9 Activity, unspecified; L03.90 Cellulitis, unspecified; Z86.718 Personal history of other venous thrombosis and embolism; Z87.442 Personal history of urinary calculi; Z90.49 Acquired absence of other specified parts of digestive tract; B95.5 Unspecified streptococcus as the cause of diseases classified elsewhere
CPT/HCPCS: 36415; 36569; 70490-TC; 71010-TC; 71250-TC; 71260-TC; 80048-TC; 80053-TC; 80061-TC; 80076-TC; 80202-TC; 83605-TC; 83735-TC; 83880; 84100-TC; 84443-TC; 84484-TC; 84703-TC; 85025-TC; 85610-TC; 85730-TC; 87040-TC; 87081-TC; 87186-TC; 90935-TC; 93307-TC; 93971-TC; 94799-TC; A4606; A6402; C1750; C1751; C1757; C1769; J0885; J1170; J1644; J2270; J2405; J3010; J3370; J3475; J3490; J7030; J7050; J7060; Q9967; Z7610

== ENCOUNTER 2016-08-10 13:41 | Inpatient (IN) | payer MEDICAID ==
[~2016-08-10] VITALS: Ht 165.1 cm; Wt 106.7 kg
[~2016-08-10 13:41] MED LIST: AMIT25TA9 PO; APIX5TAB PO; ASPI325T2 PO; CARV25TA2 PO; HYDR-4077 PO; LABE200T PO; NIFE60TA83 PO; SERT50TA PO; SEVE800T PO; TOPI-67 PO
--- NOTE | 2016-08-10 14:50 | NUR ---
PT BIB SELF C/O RLE SWELLING AND PAIN X1 DAY WITH POSITIVE HOMANS SIGN. PAIN ON AMBULATION BUT ABLE TO AMBULATE. NO REDNESS NOTED. PT HAS A CURRENT R FEMORAL HD CATH BUT HAS NOT RECEIVED HD FOR 1.5 MONTHS D/T RECENT MOVE FROM [facility]. RESP EVEN UNLABORED. SKIN WARM NONDIAPHORETIC. PEDAL PULSE WNL. NAD NOTED. IN ER BED 09.
[2016-08-10 15:14] LABS: BASOPHILS % (AUTO) 0.6 % (0.0-2.0); EOSINOPHILS # (AUTO) 0.3 /CMM (0.0-0.7); EOSINOPHILS % (AUTO) 5.4 % (0.0-6.0); HEMATOCRIT 27 % (33-45); HEMOGLOBIN 9.2 g/dL (11.5-14.8); LYMPHOCYTES # (AUTO) 0.6 /CMM (0.8-4.8); LYMPHOCYTES % (AUTO) 10.9 % (20.0-44.0); MEAN CORPUSCULAR HEMOGLOBIN 31 PG (26.0-33.0); MEAN CORPUSCULAR HGB CONC 34 g/dl (31.0-36.0); MEAN CORPUSCULAR VOLUME 90 fL (82-100); MONOCYTES # (AUTO) 0.3 /CMM (0.1-1.30); MONOCYTES % (AUTO) 6.3 % (2.0-12.0); NEUTROPHILS # (AUTO) 3.9 /CMM (1.8-8.9); NEUTROPHILS % (AUTO) 76.8 % (43.0-81.0); PLATELET COUNT (AUTO) 159 /CMM (150-450); RDW COEFFICIENT OF VARIATION 15.1 (11.5-15.0); RED BLOOD CELL COUNT(AUTO) 2.98 MIL/uL (4.0-5.2); WHITE BLOOD COUNT (AUTO) 5.1 K/uL (4.3-11.0)
--- NOTE | 2016-08-10 15:18 | NUR ---
UNABLE TO OBTAIN IV ACCESS. CHAIN TENDER GENER AT BEDSIDE FOR IV INSERTION.
[2016-08-10 15:22] LABS: CALCIUM, SERUM 8.3 mg/dL (8.5-10.1); CREATININE 6.9 mg/dL (0.6-1.3); POTASSIUM 3.1 mmol/L (3.5-5.1)
--- NOTE | 2016-08-10 15:25 | NUR ---
CALLED NURSING SUP. FOR TELE BED
[2016-08-10 15:27] LABS: INR 0.94 (0.87-1.13); PROTHROMBIN TIME 9.8 SECS (9.5-12.7)
[2016-08-10] MEDS ORDERED: HYDROCODONE/APAP 5/325MG 1 EACH TABLET PO ONE (15:30)
[2016-08-10] MEDS ORDERED: HYDROCODONE/APAP 5/325MG 1 EACH TABLET ONE (15:41)
--- NOTE | 2016-08-10 15:50 | NUR ---
CASSANDRA, MIDLINE RN, AT BEDSIDE
--- NOTE | 2016-08-10 16:02 | NUR ---
PT REFUSED NORCO STATING "IT MAKES ME SICK" DESPITE OFFER OF ANTIEMETIC. NOTIFIED. WASTED IN PYXIS WITH JACQUELINE RN
--- NOTE | 2016-08-10 16:06 | NUR ---
PT GIVEN URINE SAMPLE CUP, ASKED TO PROVIDE URINE SAMPLE SOON POSSIBLE.
[2016-08-10 16:31] LABS: APPEARANCE,URINE Slightly Cloudy (CLEAR); BILIRUBIN,URINE Negative (NEGATIVE); BLOOD, URINE Moderate Ery/uL (NEGATIVE); COLOR,URINE Yellow (YELLOW); KETONES,URINE Negative (NEGATIVE); LEUKOCYTE ESTERASE ,URINE Negative (NEGATIVE); NITRITE, URINE Negative (NEGATIVE); PH,URINE 6.5 (5.0-8.0); PROTEIN,URINE >=300 mg/dl (NEGATIVE); UGLUCOSE Negative (NEGATIVE); UROBILINOGEN,URINE 0.2 EU/dL (0.2)
[2016-08-10 16:33] LABS: PREGNANCY TEST URINE QUAL NEGATIVE (NEGATIVE)
[2016-08-10 16:39] LABS: WBC,URINE 0-2 /HPF (0-3)
[2016-08-10 16:40] LABS: BACTERIA,URINE Few /HPF (None Seen); SQUAMOUS EPITHELIAL CELL,UR Moderate /HPF (None Seen)
[2016-08-10] MEDS ORDERED: MORPHINE SULFATE INJ 4 MG/ML DISP.SYRIN ONE (17:06)
--- NOTE | 2016-08-10 17:14 | NUR ---
US TECH AT BEDSIDE FOR DOPPLER. MORPHINE 4MG IVP ADMINISTERED PER .
[2016-08-10] MEDS ORDERED: MORPHINE SULFATE INJ 2 MG/ML DISP.SYRIN IV ONE (17:30)
[2016-08-10] MEDS ORDERED: METOPROLOL TARTRATE 25 MG TABLET ONE (18:06)
--- NOTE | 2016-08-10 18:17 | NUR ---
REPORT GIVEN TO CARISA JOHNS FOR ADMISSION
[2016-08-10] MEDS ORDERED: METOPROLOL SUCCINATE 25 MG TAB.SR.24H PO ONE (18:30)
[2016-08-10] MEDS ORDERED: hydrALAZINE HCL IV 20 MG VIAL IV ONE (18:30)
[2016-08-10] MEDS ORDERED: METOPROLOL TARTRATE 25 MG TABLET PO ONE (18:30)
--- NOTE | 2016-08-10 18:30 | NUR ---
PT TRANSPORTED TO 315- IN GUARDED CONDITION
--- NOTE | 2016-08-10 18:35 | NUR ---
MS RN NOTES RECEIVED PATIENT IN STABLE CONDITION. PATIENT ORIENTED TO ROOM. NO S/S OF SOB NOTED. PATIENT'S BLOOD PRESSURE REMAINS ELEVATED.MD MADE AWARE. PATIENT MIDLINE PATENT AND INTACT. PATIENT IS A/OX4. BED IN LOW LOCKED POSITION. CALL LIGHT WITHIN REACH. WILL ENDORSE CARE TO PM SHIFT.
[2016-08-10] MEDS: TOPIRAMATE 25 MG TABLET PO SCH (18:58)
[2016-08-10] MEDS ORDERED: Z GUARD REMEDY 2 OZ OINT TP PRN (19:00)
[2016-08-10] MEDS ORDERED: ONDANSETRON HCL/PF 4 MG/2 ML VIAL IVP PRN (19:00)
[2016-08-10] MEDS ORDERED: ZOLPIDEM TARTRATE 5 MG TABLET PO PRN (19:00)
[2016-08-10] MEDS ORDERED: MAG HYDROX/AL HYDROX/SIMETH 30 ML UDC PO PRN (19:00)
[2016-08-10] MEDS ORDERED: HYDROCODONE/APAP 5/325MG 1 EACH TABLET PO PRN (19:00)
[2016-08-10] MEDS ORDERED: ACETAMINOPHEN 325 MG TABLET PO PRN (19:00)
[2016-08-10] MEDS ORDERED: CLONIDINE HCL 0.1 MG TABLET PO PRN (19:00)
[2016-08-10] MEDS ORDERED: MAGNESIUM HYDROXIDE 30 ML UDC PO PRN (19:00)
[2016-08-10] MEDS: NIFEdipine XL 60 MG TAB PO SCH (20:01)
[2016-08-10] MEDS: CARVEDILOL 12.5 MG TABLET PO SCH (20:01)
[2016-08-10] MEDS: MORPHINE SULFATE INJ 2 MG/ML DISP.SYRIN IVP PRN (20:41)
[2016-08-10 20:53] VITALS: BP 226/131
--- NOTE | 2016-08-10 21:03 | NUR ---
TELE/RN PATIENT C/O ITCHING, CALLED AND SPOKE TO PATRICIA COLLINS NP, ORDER OF BENADRYL 25 MG PO WAS RECEIVED. CARRIED OUT.
[2016-08-10] MEDS ORDERED: diphenhydrAMINE HCL 50 MG/ML VIAL ONE (21:16)
[2016-08-10] MEDS ORDERED: diphenhydrAMINE HCL 25 MG CAPSULE ONE (21:18)
[2016-08-10] MEDS ORDERED: diphenhydrAMINE HCL ELIX 25 MG/10 ML UDC PO PRN (21:30)
[2016-08-10] MEDS: diphenhydrAMINE HCL 25 MG CAPSULE PO PRN (21:44)
[2016-08-11] VITALS (8 sets, daily range): BP systolic 112–187; BP diastolic 59–116
[2016-08-11] MEDS: MORPHINE SULFATE INJ 2 MG/ML DISP.SYRIN IVP PRN ×7 (01:12→22:51)
--- NOTE | 2016-08-11 02:03 | NUR ---
TELE/RN SLEEPING AT THIS TIME, AROUSABLE, APPEAR COMFORTABLE, NO SIGNS OF DISTRESS NOTED, CALL LIGHT IN REACH. WILL CONTINUE TO MONITOR.
--- NOTE | 2016-08-11 06:45 | NUR ---
TELE/RN PATIENT IS AWAKE, ALERT, ORIENTED, COMFORTABLE, ALL NEEDS ATTENDED AT THIS TIME. WILL CONTINUE TO MONITOR.
[2016-08-11 07:36] LABS: BASOPHILS % (AUTO) 0.5 % (0.0-2.0); EOSINOPHILS # (AUTO) 0.3 /CMM (0.0-0.7); EOSINOPHILS % (AUTO) 7.3 % (0.0-6.0); HEMATOCRIT 25 % (33-45); HEMOGLOBIN 8.5 g/dL (11.5-14.8); LYMPHOCYTES # (AUTO) 0.6 /CMM (0.8-4.8); LYMPHOCYTES % (AUTO) 15.1 % (20.0-44.0); MEAN CORPUSCULAR HEMOGLOBIN 31 PG (26.0-33.0); MEAN CORPUSCULAR HGB CONC 34 g/dl (31.0-36.0); MEAN CORPUSCULAR VOLUME 91 fL (82-100); MONOCYTES # (AUTO) 0.2 /CMM (0.1-1.30); MONOCYTES % (AUTO) 4.6 % (2.0-12.0); NEUTROPHILS # (AUTO) 2.7 /CMM (1.8-8.9); NEUTROPHILS % (AUTO) 72.5 % (43.0-81.0); PLATELET COUNT (AUTO) 139 /CMM (150-450); RED BLOOD CELL COUNT(AUTO) 2.75 MIL/uL (4.0-5.2); WHITE BLOOD COUNT (AUTO) 3.7 K/uL (4.3-11.0)
[2016-08-11 07:55] LABS: CALCIUM, SERUM 7.7 mg/dL (8.5-10.1); CREATININE 6.2 mg/dL (0.6-1.3); MAGNESIUM 1.9 mg/dL (1.8-2.4); PHOSPHORUS 4.8 mg/dL (2.5-4.9); POTASSIUM 3.8 mmol/L (3.5-5.1)
--- NOTE | 2016-08-11 08:00 | NUR ---
MS ANDREAS AM NOTES RECEIVED PATIENT IN STABLE CONDITION. PATIENT IS A/OX4.NO S/S OF SOB NOTED. PATIENT C/O RLE PAIN SAYING MORPHINE ISN'T WORKING FOR HER.NOTIFIED ADINA SANCHEZ NP WITH NEW ORDERS.PATIENT MIDLINE PATENT AND INTACT.BED IN LOW LOCKED POSITION. CALL LIGHT WITHIN REACH.
[2016-08-11] MEDS: hydrALAZINE HCL 50 MG TABLET PO SCH ×2 (09:18→18:12)
[2016-08-11] MEDS: AMITRIPTYLINE HCL 25 MG TABLET PO SCH (09:19)
[2016-08-11] MEDS: SERTRALINE HCL 50 MG TABLET PO SCH (09:20)
[2016-08-11] MEDS: diphenhydrAMINE HCL 25 MG CAPSULE PO PRN (09:21)
[2016-08-11] MEDS: LABETALOL HCL (100MG) 100 MG TABLET PO SCH (09:22)
[2016-08-11] MEDS: NIFEdipine XL 60 MG TAB PO SCH ×2 (09:24→21:33)
[2016-08-11] MEDS: TOPIRAMATE 25 MG TABLET PO SCH ×2 (09:25→18:10)
[2016-08-11] MEDS: ASPIRIN 325 MG TABLET PO SCH (09:26)
[2016-08-11] MEDS: CARVEDILOL 12.5 MG TABLET PO SCH ×2 (09:26→21:32)
[2016-08-11] MEDS: SEVELAMER CARBONATE 800 MG TABLET PO SCH ×3 (10:00→18:12)
[2016-08-11] MEDS: APIXABAN 5 MG TABLET PO SCH (10:02)
--- NOTE | 2016-08-11 11:00 | NUR ---
SPOKE TO DR TRINA FRANICSCO FOR NEPHRO CONSULT AND IS AWARE.DR MENA WENT TO SEE THE PT.
--- NOTE | 2016-08-11 16:41 | NUR ---
HD RNRICHARDSON ARRIVED TO REMOVE THE OLD HD CATHETER ON THE RT GROIN AND WAS UNABLE TO REMOVE IT.WILL NOTIFY DR HANNA UPON ARRIVAL.PT VERBALIZED THAT SHE WANTS HER TEMPORARY HD CATH BE REPLACED IN O.R. AND NOT AT BEDSIDE ONLY.
--- NOTE | 2016-08-11 18:48 | NUR ---
DUST SAMPLER CLOSING NOTES PT IN BED WITH PENDING TEMPORARY HEMODIALYSIS CATHETER REPLACEMENT BY DR HANNA.PT STATED THAT DR HANNA WENT TO HER ROOM AND PT VERBALIZED TO DR HANNA OF WANTING THE PROCEDURE TO BE DONE IN O.R. AND NOT AT THE BEDSIDE.CONSENT HAS BEEN SIGNED.ALL THE MATERIALS NEEDED FOR THE PROCEDURE ARE PLACED AT THE BEDSIDE PER DR HANNA.PAIN MGT WITH MORPHINE 2 MG IV GIVEN FOR PAIN MGT WITH EFFECTIVE RESULT.CALL LIGHT WITHIN REACH.
--- NOTE | 2016-08-11 19:44 | NUR ---
tele/rn opening notes Patient in bed awake, alert and requesting for some snacks at bed time. b/p check at 112/59. patient sleeps intermittently. no s/s of discomfort. will continue to monitor. informed pain management monitoring and will check and provide as needed pain medication.
--- NOTE | 2016-08-11 21:35 | NUR ---
tele/rn notes patient reported/observed itching w/ some discomfort requesting benadryl 12.5mg /0.25ml will monitor for effectiveness.
[2016-08-11] MEDS: diphenhydrAMINE HCL 50 MG/ML VIAL IV PRN (21:37)
--- NOTE | 2016-08-11 22:55 | NUR ---
Tele/Rn notes patient verbalized pain on right lower leg of 8/10, noted grimace and guarding on site. morphine 2mg/1ml ivp given will monitor for effectiveness of pain b/p 131/67 pulse 77.
[2016-08-12] VITALS (8 sets, daily range): BP systolic 106–124; BP diastolic 54–82
[2016-08-12] MEDS: MORPHINE SULFATE INJ 2 MG/ML DISP.SYRIN IVP PRN ×5 (02:55→23:59)
--- NOTE | 2016-08-12 03:07 | NUR ---
tele/rn notes patient reported pain after 4hours given morphine 2mg/1ml ivp, reported 8/10 pain level on right lower leg. b/p check at 128/72 pulse 75. will continue to monitor effectiveness of pain medication.
[2016-08-12] MEDS: diphenhydrAMINE HCL 50 MG/ML VIAL IV PRN ×4 (03:52→23:58)
--- NOTE | 2016-08-12 03:52 | NUR ---
tele/rn notes patient itching and requested for prn benadryl 12.5mg/0.25ml, ,will monitor for effectiveness and relief of itch.
--- NOTE | 2016-08-12 06:19 | NUR ---
tele/rn notes patient in bed, asleep but awakes easily. attend to needs, verbally responsive, able to had 2 voids during shift and fluids of 711ml. monitoring for any s/s of pain or itch with prn meds. will endorse to am rn regarding continuity of care.
--- NOTE | 2016-08-12 07:35 | NUR ---
WOOD FENCE INSTALLER OPENING RECEIVED PATIENT A/OX4 SLEEPING AWAKE TO LIGHT TOUCH. PATIENT DENIES SOB, DIFFICULTY BREATHING AND PAIN CONTROLLED WITH PRN MEDICATIONS. PATIENT IS NOT ASKING FOR ANY PAIN MEDICATIONS AT THIS TIME, CALL LIGHT IN REACH, BED LOWERED AND LOCKED, RAILS UPX3. WILL ROUND Q2H OR LESS PER NEEDS
[2016-08-12] MEDS: CARVEDILOL 12.5 MG TABLET PO SCH ×2 (08:19→20:08)
[2016-08-12] MEDS: hydrALAZINE HCL 50 MG TABLET PO SCH ×2 (08:19→17:38)
[2016-08-12] MEDS: NIFEdipine XL 60 MG TAB PO SCH ×2 (08:20→23:07)
[2016-08-12] MEDS: LABETALOL HCL (100MG) 100 MG TABLET PO SCH (08:20)
[2016-08-12] MEDS: ASPIRIN 325 MG TABLET PO SCH (08:46)
[2016-08-12] MEDS: AMITRIPTYLINE HCL 25 MG TABLET PO SCH (08:46)
[2016-08-12] MEDS: SEVELAMER CARBONATE 800 MG TABLET PO SCH ×3 (08:46→17:38)
[2016-08-12] MEDS: TOPIRAMATE 25 MG TABLET PO SCH ×2 (08:46→17:38)
[2016-08-12] MEDS: SERTRALINE HCL 50 MG TABLET PO SCH (08:46)
[2016-08-12] MEDS: APIXABAN 5 MG TABLET PO SCH (08:48)
--- NOTE | 2016-08-12 09:00 | NUR ---
MS RN NOTES PATIENT DOES NOT WANT ME TO TAKE A PIC OF HER RIGHT THIGH AT THIS TIME
--- NOTE | 2016-08-12 10:47 | NUR ---
MS RN NOTES MESSAGE TO DR HANNA OFFICE TO F/U ON PLAN
--- NOTE | 2016-08-12 18:29 | NUR ---
MS RN CLOSING PATIENT STABLE AT THIS TIME PAIN MANAGED WITH PRN MEDICATIONS. PATIENT STATES NO NEEDS AT THIS TIME AND LEFT WITH CALL LIGHT IN REACH, BED LOWERED AND LOCKED, RAILS UPX3 FOR SAFETY AND WILL ENDORSE CARE TO RN KATE FOR NICOLAS
--- NOTE | 2016-08-12 19:00 | NUR ---
RN NOTE PT RESTING COMFORTABLY IN BED WITH EYES CLOSED. NO S/S OF ANY DISTRESS. BREATHING NON-LABORED AND EVEN. SAFETY AND COMFORT MEASURES RENDERED. CALL LIGHT INREAH, WILL CONT TO MONITOR.
[2016-08-13] MEDS: MORPHINE SULFATE INJ 2 MG/ML DISP.SYRIN IVP PRN ×5 (04:20→21:07)
--- NOTE | 2016-08-13 06:37 | NUR ---
RN NOTE NO SIGNIFICANT CHANGES OVERNIGHT. NO S/S OR C/O ANY DISTRESS AT THIS TIME. BREATHING NON-LABORED AND EVEN ON ROOM AIR. PRN PAIN MED PROVIDED T/O SHIFT WITH POSITIVE EFFECTS.FOR TEMP CATH PLACEMENT TODAY WITH . IV INTACT AND PATENT, CALL LIGHT IN REACH. WILL F/U WITH DAY SHIFT FOR NICOLAS.
--- NOTE | 2016-08-13 07:30 | NUR ---
MS RN OPENING RECEIVED PATIENT A/OX4 SLEEPING AWAKE TO LIGHT TOUCH. PATIENT DENIES SOB, DIFFICULTY BREATHING AND PAIN CONTROLLED WITH PRN MEDICATIONS. PATIENT REQUESTING MORPHINE AND BENADRYL AT THE SAME TIME. CALL LIGHT IN REACH, BED LOWERED AND LOCKED, RAILS UPX3. WILL ROUND Q2H OR LESS PER NEEDS
[2016-08-13 08:00] VITALS: BP 117/68
[2016-08-13] MEDS: ASPIRIN 325 MG TABLET PO SCH (08:43)
[2016-08-13] MEDS: TOPIRAMATE 25 MG TABLET PO SCH ×2 (08:43→17:06)
[2016-08-13] MEDS: AMITRIPTYLINE HCL 25 MG TABLET PO SCH (08:43)
[2016-08-13] MEDS: SEVELAMER CARBONATE 800 MG TABLET PO SCH ×3 (08:43→17:06)
[2016-08-13] MEDS: SERTRALINE HCL 50 MG TABLET PO SCH (08:44)
[2016-08-13] MEDS: CARVEDILOL 12.5 MG TABLET PO SCH ×2 (08:44→20:06)
[2016-08-13] MEDS: hydrALAZINE HCL 50 MG TABLET PO SCH ×2 (08:44→17:06)
[2016-08-13] MEDS: NIFEdipine XL 60 MG TAB PO SCH ×2 (08:44→20:06)
[2016-08-13] MEDS: LABETALOL HCL (100MG) 100 MG TABLET PO SCH (08:45)
[2016-08-13] MEDS: diphenhydrAMINE HCL 50 MG/ML VIAL IV PRN ×3 (08:46→20:58)
[2016-08-13] MEDS: APIXABAN 5 MG TABLET PO SCH (08:46)
[2016-08-13 12:45] VITALS: BP 118/65
[2016-08-13 16:00] VITALS: BP 130/79
--- NOTE | 2016-08-13 18:46 | NUR ---
MS RN CLOSING PATIENT STABLE AT THIS TIME PAIN MANAGED WITH PRN MEDICATIONS. PATIENT STATES NO NEEDS AT THIS TIME AND LEFT WITH CALL LIGHT IN REACH, BED LOWERED AND LOCKED, RAILS UPX3 FOR SAFETY AND WILL ENDORSE CARE TO RN FOR NICOLAS
--- NOTE | 2016-08-13 19:25 | NUR ---
MS RN OPENING NOTES: RECEIVED PT IN BED WITH FAMILY MEMBER AT BEDSIDE. PT IS A/OX4. PT HAS L AV SHUNT AND IT IS NOT YET MATURED/CANNOT BE USED YET. PT ALSO HAS R UPPER ARM MIDLINE. NO SIGNS OR SYMPTOMS OF DISTRESS AT THIS TIME. CALL LIGHT WITHIN PT'S REACH. BED KEPT IN LOCKED, LOWEST POSITION, AND SIDE RAILS X 2 UP. WILL CONTINUE TO MONITOR PT.
[2016-08-13 19:54] VITALS: BP 120/65
[2016-08-13 20:00] VITALS: BP 129/65
[2016-08-14] VITALS (10 sets, daily range): BP systolic 106–139; BP diastolic 58–82
[2016-08-14] MEDS: MORPHINE SULFATE INJ 2 MG/ML DISP.SYRIN IVP PRN ×5 (01:08→21:48)
--- NOTE | 2016-08-14 01:08 | NUR ---
MS RN NOTES: PT C/O RIGHT LEG PAIN 10/26. PT REQUESTED FOR MORPHINE 2MG IV. BP WAS 122/73 HR 74, PULSE OX 98%, AND RR 18. WHILE PATIENT WAS BEING ADMINISTERED MED, PT WAS ASKED IF PHOTOS CAN BE TAKEN FOR SKIN ASSESSMENT. PT REFUSED AT THIS TIME. WILL CONTINUE TO MONITOR PT.
[2016-08-14] MEDS: diphenhydrAMINE HCL 50 MG/ML VIAL IV PRN ×4 (03:04→23:48)
--- NOTE | 2016-08-14 05:52 | NUR ---
MS RN NOTES: PT REQUESTED FOR MORPHINE PAIN MEDICATION D/T 10/26 R LEG PAIN. BP WAS 112/70 HR 82, PULSE OX 99%, RR 18. WILL CONTINUE TO MONITOR PT.
--- NOTE | 2016-08-14 07:30 | NUR ---
MS RN CLOSING NOTES: ALL NEEDS WERE ATTENDED AND ANTICIPATED FOR. NO SIGNS OR SYMPTOMS OF DISTRESS NOTED AT THIS TIME. PT IS A/O X4; PT WAS AWAKE LAYING IN BED. PT KEPT CLEAN, DRY, AND COMFORTABLE. PT REFUSED FOR SKIN ASSESSMENT AND FOR PHOTOS TO BE TAKEN. PT HAS L AV SHUNT AND HAS NOT MATURED YET; BRUIT HEARD AND THRILL FELT. PT HAS R UPPER ARM MIDLINE AND IS PATENT AND INTACT. CALL LIGHT WITHIN PT'S REACH. BED KEPT IN LOCKED, LOWEST POSITION, AND SIDE RAILS X 2 UP. ENDORSED TO AM NURSE FOR NICOLAS.
--- NOTE | 2016-08-14 08:00 | NUR ---
MS RN NOTES RECEIVED REPORT WITH PATIENT RESTING IN BED. PATIENT IS A/OX4. NO S/S OF SOB NOTED. NO S/S OF ACUTE DISTRESS NOTED. PATIENT RIGHT UA MIDLINE PATENT AND INTACT. BED IS IN LOW LOCKED POSITION. CALL LIGHT WITHIN REACH. WILL CONTINUE TO MONITOR THROUGHOUT SHIFT.
[2016-08-14 08:14] LABS: ALBUMIN 2.8 g/dL (3.4-5.0); BILIRUBIN,TOTAL 0.1 mg/dL (0.2-1.0); CALCIUM, SERUM 7.6 mg/dL (8.5-10.1); CREATININE 7.2 mg/dL (0.6-1.3); MAGNESIUM 1.9 mg/dL (1.8-2.4); PHOSPHORUS 4.6 mg/dL (2.5-4.9); TOTAL PROTEIN, SERUM 6.5 g/dL (6.4-8.2)
[2016-08-14 08:18] LABS: BASOPHILS % (AUTO) 0.7 % (0.0-2.0); EOSINOPHILS # (AUTO) 0.3 /CMM (0.0-0.7); EOSINOPHILS % (AUTO) 7.8 % (0.0-6.0); HEMATOCRIT 23 % (33-45); HEMOGLOBIN 7.5 g/dL (11.5-14.8); LYMPHOCYTES # (AUTO) 1.1 /CMM (0.8-4.8); LYMPHOCYTES % (AUTO) 32.6 % (20.0-44.0); MEAN CORPUSCULAR HEMOGLOBIN 30 PG (26.0-33.0); MEAN CORPUSCULAR HGB CONC 33 g/dl (31.0-36.0); MEAN CORPUSCULAR VOLUME 90 fL (82-100); MONOCYTES # (AUTO) 0.5 /CMM (0.1-1.30); MONOCYTES % (AUTO) 13.4 % (2.0-12.0); NEUTROPHILS # (AUTO) 1.6 /CMM (1.8-8.9); NEUTROPHILS % (AUTO) 45.5 % (43.0-81.0); PLATELET COUNT (AUTO) 132 /CMM (150-450); RDW COEFFICIENT OF VARIATION 15.9 (11.5-15.0); RED BLOOD CELL COUNT(AUTO) 2.51 MIL/uL (4.0-5.2); WHITE BLOOD COUNT (AUTO) 3.4 K/uL (4.3-11.0)
[2016-08-14] MEDS: ASPIRIN 325 MG TABLET PO SCH (08:57)
[2016-08-14] MEDS: SERTRALINE HCL 50 MG TABLET PO SCH (08:57)
[2016-08-14] MEDS: LABETALOL HCL (100MG) 100 MG TABLET PO SCH (08:57)
[2016-08-14] MEDS: AMITRIPTYLINE HCL 25 MG TABLET PO SCH (08:57)
[2016-08-14] MEDS: TOPIRAMATE 25 MG TABLET PO SCH ×2 (08:58→17:44)
[2016-08-14] MEDS: CARVEDILOL 12.5 MG TABLET PO SCH ×2 (08:58→20:21)
[2016-08-14] MEDS: SEVELAMER CARBONATE 800 MG TABLET PO SCH ×3 (08:58→17:44)
[2016-08-14] MEDS: NIFEdipine XL 60 MG TAB PO SCH ×2 (08:59→20:20)
[2016-08-14] MEDS: hydrALAZINE HCL 50 MG TABLET PO SCH ×2 (09:00→17:44)
[2016-08-14] MEDS: APIXABAN 5 MG TABLET PO SCH (09:05)
[2016-08-14] MEDS ORDERED: BLOOD IV SET 1 EA INFUS.SET MC ONE (12:50)
[2016-08-14] MEDS ORDERED: IV NS 0.9% 250 ML IV ONE (12:51)
--- NOTE | 2016-08-14 16:20 | NUR ---
MS RN NOTES 1 UNIT OF PRBC ADMINISTERED. PATIENT TOLERATED TRANSFUSION WELL WITH NO REACTIONS. VITAL SIGNS STABLE
--- NOTE | 2016-08-14 19:05 | NUR ---
MS RN NOTES PATIENT IS A/OX4, RESTING IN BED WATCHING TV. NO S/S OF ACUTE DISTRESS NOTED. NO SOB NOTED. PATIENT RIGHT UA MIDLINE PATENT AND INTACT. ALL PATIENT NEEDS HAVE BEEN MET. PAIN HAS BEEN MANAGED. BED IN LOW LOCKED POSITION. CALL LIGHT WITHIN REACH. WILL ENDORSE CARE TO PM SHIFT.
--- NOTE | 2016-08-14 19:25 | NUR ---
MS RN OPENING NOTES: RECEIVED PT IN BED AWAKE. PT IS A/O X 4. WAS ENDORSED FROM AM NURSE THAT SHE RECEIVED 1 UNIT OF PRBCS AND TOLERATED WELL. NO SIGNS OR SYMPTOMS OF DISTRESS NOTED AT THIS TIME. CALL LIGHT WITHIN PT'S REACH. BED KEPT IN LOCKED, LOWEST POSITION, AND SIDE RAILS X 2UP. PT HAS L AV SHUNT AND IS NOT MATURE YET; PT ALSO HAS SULTANA MIDLINE AND IS PATENT AND INTACT. WILL CONTINUE TO MONITOR PT.
--- NOTE | 2016-08-14 20:25 | NUR ---
MS RN NOTES: REASSESSMENT FOR MORPHINE NOT DONE AT 0622. PM CHARGE NURSE, AILEEN RIVERA.
--- NOTE | 2016-08-14 21:48 | NUR ---
MS RN NOTES: PT C/O OF R LEG PAIN 10/26. BP WAS 137/74 HR 79. PT RECEIVED MORPHINE 2MG IVP. WILL CONTINUE TO MONITOR PT.
--- NOTE | 2016-08-14 23:48 | NUR ---
MS RN NOTES: PT REQUESTED FOR BENADRYL FOR ITCHING. WILL CONTINUE TO MONITOR PT.
[2016-08-15] MEDS: MORPHINE SULFATE INJ 2 MG/ML DISP.SYRIN IVP PRN ×5 (01:55→19:46)
--- NOTE | 2016-08-15 01:55 | NUR ---
MS RN NOTES: PT REQUESTED FOR MORPHINE IVP. PT COMPLAINED OF 8/10 R LEG PAIN. PT'S BP WAS 131/70 , HR 76, PULSE OX 97%, AND RR 18. WILL CONTINUE TO MONITOR PT.
[2016-08-15] MEDS: diphenhydrAMINE HCL 50 MG/ML VIAL IV PRN ×3 (06:11→20:10)
--- NOTE | 2016-08-15 06:11 | NUR ---
MS RN NOTES: PT COMPLAINED OF RIGHT LEG PAIN 8/10. PT'S BLOOD PRESSURE WAS 118/60 HR 73, AND RR 18. MORPHINE 2MG WAS ADMINISTERED IVP. WILL CONTINUE TO MONITOR PT.
--- NOTE | 2016-08-15 07:00 | NUR ---
MS CLOSING NOTES: ALL NEEDS WERE ATTENDED AND ANTICIPATED FOR. PT'S PAIN MANAGEMENT WAS TAKEN CARE OF. NO SIGNS OR SYMPTOMS OF DISTRESS NOTED AT THIS TIME. CALL LIGHT WITHIN PT'S REACH. BED KEPT IN LOCKED, LOWEST POSITION, AND SIDE RAILS X 2 UP. PT HAS L AV SHUNT THAT HAS NOT MATURED YET AND HAS R UPPER ARM MIDLINE AND IS PATENT AND INTACT. ENDORSED TO AM NURSE FOR NICOLAS.
--- NOTE | 2016-08-15 07:46 | NUR ---
MS RN NOTES RECEIVED REPORT WITH PATIENT SITTING UP IN BED. PATIENT IS A/OX4. NO S/S OF DISTRESS NOTED. NO SOB NOTED. LEFT AV SHUNT INTACT, NOT MATURED. RIGHT UPPER ARM MIDLINE PATENT AND INTACT. PATIENT DENIES PAIN AT THIS TIME. CALL LIGHT IS WITHIN REACH. BED IS IN LOW LOCKED POSITION. WILL CONTINUE TO MONITOR THROUGHOUT SHIFT.
[2016-08-15 08:00] VITALS: BP 117/73
[2016-08-15] MEDS: APIXABAN 5 MG TABLET PO SCH ×2 (09:00→09:15)
[2016-08-15] MEDS: LABETALOL HCL (100MG) 100 MG TABLET PO SCH (09:12)
[2016-08-15] MEDS: SERTRALINE HCL 50 MG TABLET PO SCH (09:12)
[2016-08-15] MEDS: hydrALAZINE HCL 50 MG TABLET PO SCH ×2 (09:12→18:29)
[2016-08-15] MEDS: AMITRIPTYLINE HCL 25 MG TABLET PO SCH (09:12)
[2016-08-15] MEDS: NIFEdipine XL 60 MG TAB PO SCH ×2 (09:12→20:09)
[2016-08-15] MEDS: TOPIRAMATE 25 MG TABLET PO SCH ×2 (09:13→18:29)
[2016-08-15] MEDS: SEVELAMER CARBONATE 800 MG TABLET PO SCH ×3 (09:13→18:29)
[2016-08-15] MEDS: CARVEDILOL 12.5 MG TABLET PO SCH ×2 (09:13→20:10)
[2016-08-15] MEDS: ASPIRIN 325 MG TABLET PO SCH (09:13)
[2016-08-15 10:03] LABS: BASOPHILS % (AUTO) 0.9 % (0.0-2.0); EOSINOPHILS # (AUTO) 0.4 /CMM (0.0-0.7); HEMATOCRIT 24 % (33-45); HEMOGLOBIN 8.1 g/dL (11.5-14.8); LYMPHOCYTES # (AUTO) 1.5 /CMM (0.8-4.8); LYMPHOCYTES % (AUTO) 32.8 % (20.0-44.0); MEAN CORPUSCULAR HEMOGLOBIN 29 PG (26.0-33.0); MEAN CORPUSCULAR HGB CONC 33 g/dl (31.0-36.0); MEAN CORPUSCULAR VOLUME 88 fL (82-100); MONOCYTES # (AUTO) 0.5 /CMM (0.1-1.30); MONOCYTES % (AUTO) 10.9 % (2.0-12.0); NEUTROPHILS # (AUTO) 2.1 /CMM (1.8-8.9); NEUTROPHILS % (AUTO) 47.4 % (43.0-81.0); PLATELET COUNT (AUTO) 160 /CMM (150-450); RDW COEFFICIENT OF VARIATION 17.6 (11.5-15.0); RED BLOOD CELL COUNT(AUTO) 2.79 MIL/uL (4.0-5.2); WHITE BLOOD COUNT (AUTO) 4.5 K/uL (4.3-11.0)
[2016-08-15 10:16] LABS: CALCIUM, SERUM 7.7 mg/dL (8.5-10.1); POTASSIUM 3.9 mmol/L (3.5-5.1)
[2016-08-15 10:18] LABS: CREATININE 7.5 mg/dL (0.6-1.3)
[2016-08-15 16:00] VITALS: BP 112/68
--- NOTE | 2016-08-15 19:05 | NUR ---
MS RN NOTES PATIENT IS A/OX4. IV IS PATENT AND INTACT. NO S/S OF ACUTE DISTRESS NOTED. NO S/S OF SOB NOTED. ALL PATIENT NEEDS HAVE BEEN MET THROUGHOUT SHIFT. BED IS IN LOWEST LOCKED POSITION. CALL LIGHT WITHIN REACH. WILL ENDORSE CARE TO PM SHIFT.
--- NOTE | 2016-08-15 19:54 | NUR ---
ms/rn opening notes patient in bed, alert, oriented x3. able to verbalizer needs. rn am gave endorse continuity of care. verbalize pain 810 on right lower leg and check b/p 121/71. will continue to proviide care and monitor.
[2016-08-15 20:23] VITALS: BP 121/71
[2016-08-16] MEDS: MORPHINE SULFATE INJ 2 MG/ML DISP.SYRIN IVP PRN ×4 (00:50→23:10)
--- NOTE | 2016-08-16 00:53 | NUR ---
MS/RN NOTES PATIENT VERBALIZED PAIN OF 8/10 IN RIGHT LOWER LEG. ADMINISTER PAIN MEDICATION IVP MORPHINE 2MG/1ML. WILL CONTINUE TO MONITOR AND ASSESS PAIN EFFECTIVENESS.
[2016-08-16] MEDS: diphenhydrAMINE HCL 50 MG/ML VIAL IV PRN ×3 (02:06→16:32)
--- NOTE | 2016-08-16 07:00 | NUR ---
MS/RN CLOSING NOTES PATIENT IN BED, AWAKE, ALERT, ORIENTEDX3. ABLE TO VERBALIZE NEEDS. ON PAIN MONITORING. WILL ENDORSE TO AM RN REGARDING NICOLAS. CONTINOUS MONITORING.
--- NOTE | 2016-08-16 07:42 | NUR ---
MS RN OPENING NOTE PATIENT IS ALERT AND ORIENTED x4. NO PAIN AT THIS TIME. NO SOB OR DISTRESS NOTED. CALL LIGHT WITHIN REACH. SAFETY MEASURES IMPLEMENTED. NPO FOR SURGERY FOR DIALYSIS CATHETER. ABLE TO COMMUNICATE NEEDS. WILL CONTINUE TO MONITOR
[2016-08-16 07:47] LABS: BASOPHILS % (AUTO) 0.7 % (0.0-2.0); EOSINOPHILS # (AUTO) 0.4 /CMM (0.0-0.7); HEMATOCRIT 26 % (33-45); HEMOGLOBIN 8.6 g/dL (11.5-14.8); LYMPHOCYTES # (AUTO) 1.5 /CMM (0.8-4.8); LYMPHOCYTES % (AUTO) 32.3 % (20.0-44.0); MEAN CORPUSCULAR HEMOGLOBIN 30 PG (26.0-33.0); MEAN CORPUSCULAR HGB CONC 34 g/dl (31.0-36.0); MEAN CORPUSCULAR VOLUME 88 fL (82-100); MONOCYTES # (AUTO) 0.4 /CMM (0.1-1.30); MONOCYTES % (AUTO) 9.2 % (2.0-12.0); NEUTROPHILS # (AUTO) 2.3 /CMM (1.8-8.9); NEUTROPHILS % (AUTO) 49.8 % (43.0-81.0); PLATELET COUNT (AUTO) 173 /CMM (150-450); RDW COEFFICIENT OF VARIATION 17.8 (11.5-15.0); RED BLOOD CELL COUNT(AUTO) 2.91 MIL/uL (4.0-5.2); WHITE BLOOD COUNT (AUTO) 4.5 K/uL (4.3-11.0)
[2016-08-16 08:00] VITALS: BP 131/78
[2016-08-16] MEDS: SEVELAMER CARBONATE 800 MG TABLET PO SCH ×3 (08:00→18:00)
[2016-08-16 08:10] LABS: CALCIUM, SERUM 8.1 mg/dL (8.5-10.1); CREATININE 7.2 mg/dL (0.6-1.3); MAGNESIUM 2.2 mg/dL (1.8-2.4); PHOSPHORUS 3.3 mg/dL (2.5-4.9); POTASSIUM 4.3 mmol/L (3.5-5.1)
[2016-08-16] MEDS: AMITRIPTYLINE HCL 25 MG TABLET PO SCH (09:00)
[2016-08-16] MEDS: hydrALAZINE HCL 50 MG TABLET PO SCH ×2 (09:00→17:00)
[2016-08-16] MEDS: NIFEdipine XL 60 MG TAB PO SCH ×2 (09:00→20:53)
[2016-08-16] MEDS: CARVEDILOL 12.5 MG TABLET PO SCH ×2 (09:00→20:53)
[2016-08-16] MEDS: ASPIRIN 325 MG TABLET PO SCH (09:00)
[2016-08-16] MEDS: TOPIRAMATE 25 MG TABLET PO SCH ×2 (09:00→16:31)
[2016-08-16] MEDS: APIXABAN 5 MG TABLET PO SCH (09:00)
[2016-08-16] MEDS: SERTRALINE HCL 50 MG TABLET PO SCH (09:00)
[2016-08-16] MEDS: LABETALOL HCL (100MG) 100 MG TABLET PO SCH (09:00)
[2016-08-16] MEDS ORDERED: LIDOCAINE HCL/PF 1% 30 ML SDV ONE (09:10)
[2016-08-16] MEDS ORDERED: HEPARIN SODIUM, PORCINE 1,000 UNIT/ML VIAL ONE (09:10)
--- NOTE | 2016-08-16 09:30 | NUR ---
MS RN NOTE PATIENT IS GOING DOWN TO OR FOR DIALYSIS CATHETER PLACEMENT. VITALS ARE STABLE. PATIENT IS STABLE. NO PAIN AT THIS TIME. NO SOB OR DISTRESS NOTED. WILL MONITOR PATIENT WHEN THEY RETURN
--- NOTE | 2016-08-16 11:10 | NUR ---
MS RN NOTE PATIENT RETURNED FROM OR. PATIENT IS STABLE VITALS ARE STABLE. RESUME ALL PREVIOUS ORDERS FOR MEDICATION, AND DIET. NO PAIN AT THIS TIME. NO SOB OR DISTRESS NOTED. WILL CONTINUE TO MONITOR
[2016-08-16 16:00] VITALS: BP 155/97
--- NOTE | 2016-08-16 16:36 | NUR ---
MS RN NOTE PATIENT REQUESTED TO HAVE ZOLOFT FROM THIS MORNING DOSE DUE TO BEING NPO EARLIER TODAY. NOW PATIENT REFUSED MEDICATION. MADE PHARMACY AWARE
[2016-08-16] MEDS ORDERED: diphenhydrAMINE HCL 50 MG/ML VIAL IV ONE (17:30)
--- NOTE | 2016-08-16 18:15 | NUR ---
MS RN CLOSING NOTE PATIENT IS ALERT AND ORIENTED x4. NO PAIN AT THIS TIME. NO SOB OR DISTRESS NOTED. ALL DUE MEDICATION GIVEN ORDERED. SAFETY MEASURES IMPLEMENTED. CALL LIGHT WITHIN REACH AT ALL TIMES. ABLE TO COMMUNICATE NEEDS. HELD MEDICATIONS WHILE ON DIALYSIS, CURRENTLY STILL RECEIVING HD. WILL INFORM CLINICAL ASST NURSE
--- NOTE | 2016-08-16 19:20 | NUR ---
RN NOTES RECEIVED PT AWAKE, HOB ELEVATED, NO SOB, NOT IN DISTRESS, ON ROOM AIR WITH GOOD SATURATION. PT ALERT AND ORIENTED X4, PAIN ON BOTH LOWER LEG AT TOLERABLE LEVEL AT THIS TIME. RIGHT UPPER ARM MIDLINE PATENT AND INTACT. LEFT AV SHUNT WITH POSITIVE BRUIT AND THRILL. KEPT COMFORTABLE AND ATTENDED. WILL CONTINUE TO MONITOR PT.
[2016-08-16 20:00] VITALS: BP 163/107
[2016-08-16 22:00] VITALS: BP 163/107
--- NOTE | 2016-08-16 23:10 | NUR ---
RN NOTES PT COMPLAINS OF PAIN ON HER BOTH LOWER LEG 11/26, MORPHINE 2MG GIVEN IV. WILL CONTINUE TO MONITOR PT.
[2016-08-17] MEDS: diphenhydrAMINE HCL 50 MG/ML VIAL IV PRN ×3 (00:05→15:10)
--- NOTE | 2016-08-17 00:05 | NUR ---
RN NOTES PT COMPLAINS OF GENERALIZED BODY ITCHING, BENADRYL 12.5 MG GIVEN IV. WILL CONTINUE TO MONITOR PT.
[2016-08-17] MEDS: MORPHINE SULFATE INJ 2 MG/ML DISP.SYRIN IVP PRN ×3 (03:21→15:10)
--- NOTE | 2016-08-17 03:21 | NUR ---
RN NOTES PT COMPLAINS OF PAIN ON HER BOTH LOWER LEG 11/26, MORPHINE 2 MG GIVEN IV. WILL CONTINUE TO MONITOR PT.
--- NOTE | 2016-08-17 07:23 | NUR ---
RN NOTES PT AWAKE, HOB ELEVATED, NO SOB, NOT IN DISTRESS, ON ROOM AIR AND TOLERATED WELL. VITAL SIGNS STABLE, AFEBRILE. NO EPISODE OF NAUSEA AND VOMITING. KEPT PAIN AT TOLERABLE LEVEL. ALL DUE MEDS GIVEN. ALL NEEDS MET. NO SIGNIFICANT CHANGE IN CONDITION NOTED. WILL ENDORSE TO MORNING RN FOR CONTINUITY OF CARE.
--- NOTE | 2016-08-17 07:35 | NUR ---
MS RN OPENING NOTE PATIENT IS ALERT AND ORIENTED x4. NO PAIN AT THIS TIME. NO SOB OR DISTRESS NOTED. CALL LIGHT WITHIN REACH. SAFETY MEASURES IMPLEMENTED. IV INTACT AND PATENT NO REDNESS OR SWELLING NOTED. ABLE TO COMMUNICATE NEEDS. WILL CONTINUE TO MONITOR
[2016-08-17 08:00] VITALS: BP 136/80
[2016-08-17] MEDS: TOPIRAMATE 25 MG TABLET PO SCH (08:59)
[2016-08-17] MEDS: ASPIRIN 325 MG TABLET PO SCH (08:59)
[2016-08-17] MEDS: SERTRALINE HCL 50 MG TABLET PO SCH (08:59)
[2016-08-17] MEDS: SEVELAMER CARBONATE 800 MG TABLET PO SCH ×2 (08:59→13:04)
[2016-08-17] MEDS: APIXABAN 5 MG TABLET PO SCH (08:59)
[2016-08-17] MEDS: CARVEDILOL 12.5 MG TABLET PO SCH (09:00)
[2016-08-17] MEDS: NIFEdipine XL 60 MG TAB PO SCH (09:00)
[2016-08-17] MEDS: LABETALOL HCL (100MG) 100 MG TABLET PO SCH (09:01)
[2016-08-17 09:02] VITALS: BP 136/80
[2016-08-17] MEDS: hydrALAZINE HCL 50 MG TABLET PO SCH (09:02)
[2016-08-17] MEDS: AMITRIPTYLINE HCL 25 MG TABLET PO SCH (09:04)
--- NOTE | 2016-08-17 16:37 | NUR ---
MS RN NOTE PATIENT LEFT AGAINST MEDICAL ADVICE. EXPLAINED RISKS AND BENEFITS TO PATIENT, BUT PATIENT STILL REFUSED AND DEMANDED TO LEAVE. MADE DR. TYSHAWN FRANK KNOW ABOUT PATIENT SITUATION. PATIENT IS ALERT AND ORIENTED x4. NO PAIN AT THIS TIME. AMA PAPER SIGNED. ALL BELONGINGS WITH PATIENT, REFUSED TO SIGN BELONGINGS LIST. RIGHT UPPER MIDLINE REMOVED. PATIENT LEFT VIA PRIVATE CAR WITH BOYFRIEND SUPA. CHARGE NURSE AND NURSING FLOORMAN AWARE
--- NOTE | 2016-08-17 16:51 | NUR ---
INCIDENT REPORT NUMBER Unique Id: [id number]
== END 2016-08-17 16:30 | disposition left against medical advice (07) | DRG 460 ==
LOC: ER 13:47 → TELE 18:22 → MED 08-12 09:57
PROVIDERS: ADMIT Family Medicine; ATTEND Family Medicine
PROC: 06PYX3Z Removal of Infusion Device from Lower Vein, External Approach (ICD-10-PCS; principal; 2016-08-11)
PROC: 30233N1 Transfusion of Nonautologous Red Blood Cells into Peripheral Vein, Percutaneous Approach (ICD-10-PCS; 2016-08-14)
PROC: B519YZA Fluoroscopy of Inferior Vena Cava using Other Contrast, Guidance (ICD-10-PCS; 2016-08-16)
PROC: 5A1D00Z (ICD-10-PCS; 2016-08-16)
PROC: 06H033Z Insertion of Infusion Device into Inferior Vena Cava, Percutaneous Approach (ICD-10-PCS; 2016-08-16)
DX: I12.0 Hypertensive chronic kidney disease with stage 5 chronic kidney disease or end stage renal disease (principal); E11.22 Type 2 diabetes mellitus with diabetic chronic kidney disease; N18.6 End stage renal disease; Z99.2 Dependence on renal dialysis; I16.0 Hypertensive urgency; I89.0 Lymphedema, not elsewhere classified; D63.8 Anemia in other chronic diseases classified elsewhere; E66.9 Obesity, unspecified; Z68.36 Body mass index [BMI] 36.0-36.9, adult; E66.01 Morbid (severe) obesity due to excess calories; E87.70 Fluid overload, unspecified; Z79.01 Long term (current) use of anticoagulants; Z86.718 Personal history of other venous thrombosis and embolism; Z87.442 Personal history of urinary calculi; E83.9 Disorder of mineral metabolism, unspecified; Z86.73 Personal history of transient ischemic attack (TIA), and cerebral infarction without residual deficits; Z83.3 Family history of diabetes mellitus; Z79.899 Other long term (current) drug therapy
CPT/HCPCS: 36415; 71010-TC; 74000-TC; 80048-TC; 80053-TC; 80061-TC; 81000-TC; 83735-TC; 84100-TC; 84703-TC; 85025-TC; 85730-TC; 86704; 86705; 86706; 86803; 86850-TC; 86921-TC; 87081-TC; 87340; 90935-TC; 93971-TC; A4606; A6402; C1750; C1769; J0360; J1200; J1644; J2270; J3490; J7050; P9016-BL; Q0163; Z7610

== ENCOUNTER 2016-08-31 11:42 | Emergency (ER) | payer MEDICAID ==
[~2016-08-31] VITALS: Ht 165.1 cm; Wt 95.3 kg
--- NOTE | 2016-08-31 11:50 | NUR ---
AAOX3, SENT FROM DIALYSIS FOR HIGH BLOOD PRESSURE 235/140 RAN OUT OF BP MEDICATION. PATIENT DID NOT HAVE A DIALYSIS TODAY D/T HTN. LAST DIALYSIS WAS 2 WEEKS AGO PER PATIENT REPORT. RR IS EVEN AND UNLABORED WITH NAD NOTED. SKIN IS WARM AND DRY. PLACED ON MONITOR. AWAITING MD FOR EVAL.
[2016-08-31] MEDS ORDERED: LABETALOL 20 MG/4 ML VIAL ONE (12:28)
[2016-08-31] MEDS ORDERED: LABETALOL 20 MG/4 ML VIAL IV ONE (12:30)
[2016-08-31 12:31] LABS: BASOPHILS # (AUTO) 0.1 /CMM (0.0-0.2); BASOPHILS % (AUTO) 0.8 % (0.0-2.0); EOSINOPHILS # (AUTO) 0.5 /CMM (0.0-0.7); EOSINOPHILS % (AUTO) 6.9 % (0.0-6.0); HEMATOCRIT 28 % (33-45); HEMOGLOBIN 8.9 g/dL (11.5-14.8); LYMPHOCYTES # (AUTO) 1.1 /CMM (0.8-4.8); LYMPHOCYTES % (AUTO) 15.3 % (20.0-44.0); MEAN CORPUSCULAR HEMOGLOBIN 29 PG (26.0-33.0); MEAN CORPUSCULAR HGB CONC 32 g/dl (31.0-36.0); MEAN CORPUSCULAR VOLUME 90 fL (82-100); MONOCYTES # (AUTO) 0.5 /CMM (0.1-1.30); MONOCYTES % (AUTO) 6.9 % (2.0-12.0); NEUTROPHILS # (AUTO) 5.2 /CMM (1.8-8.9); NEUTROPHILS % (AUTO) 70.1 % (43.0-81.0); PLATELET COUNT (AUTO) 183 /CMM (150-450); RED BLOOD CELL COUNT(AUTO) 3.08 MIL/uL (4.0-5.2); WHITE BLOOD COUNT (AUTO) 7.4 K/uL (4.3-11.0)
[2016-08-31 12:44] LABS: CALCIUM, SERUM 8.4 mg/dL (8.5-10.1); CREATININE 6.7 mg/dL (0.6-1.3); POTASSIUM 3.7 mmol/L (3.5-5.1)
[2016-08-31 12:45] LABS: PROTHROMBIN TIME 10.4 SECS (9.5-12.7)
[2016-08-31] MEDS ORDERED: hydrALAZINE HCL IV 20 MG VIAL ONE (12:53)
[2016-08-31] MEDS ORDERED: hydrALAZINE HCL IV 20 MG VIAL IV ONE (13:00)
[2016-08-31] MEDS ORDERED: HYDROCODONE/APAP 10/325MG 1 EA TABLET ONE (13:04)
[2016-08-31] MEDS ORDERED: HYDROCODONE/APAP 10/325MG 1 EA TABLET PO ONE (13:30)
--- NOTE | 2016-08-31 13:37 | NUR ---
IV removed. Catheter intact and site benign. Pressure and 4x4 applied to site. No bleeding noted.PT. VERBALIZED UNDERSTANDING OF AFTERCARE INSTRUCTIONS.Patient discharged to home in stable condition. Written and verbal after care instructions given. Patient verbalizes understanding of instruction.
[2016-08-31 13:40] VITALS: BP 154/85
== END 2016-08-31 13:41 | disposition home or self-care (01) ==
LOC: ER 11:43
DX: I12.0 Hypertensive chronic kidney disease with stage 5 chronic kidney disease or end stage renal disease (principal); E11.22 Type 2 diabetes mellitus with diabetic chronic kidney disease; N18.6 End stage renal disease; Z79.82 Long term (current) use of aspirin; Z86.73 Personal history of transient ischemic attack (TIA), and cerebral infarction without residual deficits; Z87.442 Personal history of urinary calculi; Z95.818 Presence of other cardiac implants and grafts; Z98.890 Other specified postprocedural states; Z99.2 Dependence on renal dialysis; Z91.14 Patient's other noncompliance with medication regimen
CPT/HCPCS: 36415; 71010; 80048; 85025; 85730; 93005; 96374; 96375; 99285; A4606; J0360; J3490; Z7610

== ENCOUNTER 2016-09-23 01:23 | Inpatient (IN) | payer MEDICAID ==
[~2016-09-23] VITALS: Ht 165.1 cm; Wt 92.2 kg
[2016-09-23] MEDS ORDERED: VANCOMYCIN 1 GM in IV D5W 250 ML IV ONE (02:00)
--- NOTE | 2016-09-23 02:04 | NUR ---
31 YEARS OLD FEMALE C/O LEFT UPPER EXTREMITY PAIN 8/10, EDEMA, LEFT LOWER EXTRMITY PAIN AND EDEMA. PT HAS AV FISTULA ON LEFT UPPER ARM AND MARCELLUS CATH ON LEFT THIGH. PLACED PN BEDSIDE MONITOR. SEEN AND EXAMINED BY DR VALENCIA. PT IS AAO X4. ONGOING MONITORING..
[2016-09-23] MEDS ORDERED: IV SET PRIMARY PUMP SET 1 EA INFUS.SET MC ONE (02:42)
[2016-09-23] MEDS ORDERED: VANCOMYCIN 1 GM VIAL ONE (02:43)
[2016-09-23 02:53] LABS: BASOPHILS # (AUTO) 0.1 /CMM (0.0-0.2); BASOPHILS % (AUTO) 1.4 % (0.0-2.0); EOSINOPHILS # (AUTO) 0.4 /CMM (0.0-0.7); EOSINOPHILS % (AUTO) 7.2 % (0.0-6.0); HEMATOCRIT 24 % (33-45); HEMOGLOBIN 8.1 g/dL (11.5-14.8); LYMPHOCYTES # (AUTO) 1.2 /CMM (0.8-4.8); MEAN CORPUSCULAR HEMOGLOBIN 30 PG (26.0-33.0); MEAN CORPUSCULAR HGB CONC 33 g/dl (31.0-36.0); MEAN CORPUSCULAR VOLUME 91 fL (82-100); MONOCYTES # (AUTO) 0.5 /CMM (0.1-1.30); MONOCYTES % (AUTO) 9.6 % (2.0-12.0); NEUTROPHILS % (AUTO) 58.8 % (43.0-81.0); PLATELET COUNT (AUTO) 187 /CMM (150-450); RDW COEFFICIENT OF VARIATION 20.3 (11.5-15.0); RED BLOOD CELL COUNT(AUTO) 2.68 MIL/uL (4.0-5.2); WHITE BLOOD COUNT (AUTO) 5.1 K/uL (4.3-11.0)
[2016-09-23 03:02] LABS: CALCIUM, SERUM 8.4 mg/dL (8.5-10.1); POTASSIUM 3.6 mmol/L (3.5-5.1)
[2016-09-23] MEDS ORDERED: MORPHINE SULFATE INJ 4 MG/ML DISP.SYRIN ONE (03:13)
[2016-09-23] MEDS ORDERED: ONDANSETRON HCL/PF 4 MG/2 ML VIAL ONE (03:13)
--- NOTE | 2016-09-23 03:19 | NUR ---
PT C/O PAIN IN LUE AND LLE. PT WAS CRYING AND STATED THAT HER PAIN WAS 8/10. DR VALENCIA WAS NOTIFIED.
--- NOTE | 2016-09-23 03:25 | NUR ---
DIRECTOR OF PLANNING AT THE BEDSIDE.
[2016-09-23] MEDS ORDERED: MORPHINE SULFATE INJ 2 MG/ML DISP.SYRIN IV ONE (03:30)
[2016-09-23] MEDS ORDERED: ONDANSETRON HCL/PF 4 MG/2 ML VIAL IV ONE (03:30)
--- NOTE | 2016-09-23 03:34 | NUR ---
DOPPLER IS FINISHED. NEG FOR DVT IN LLE
--- NOTE | 2016-09-23 03:40 | NUR ---
REPORT GIVEN TO ANDREAS NOLAN
[2016-09-23 04:00] VITALS: BP 180/111
--- NOTE | 2016-09-23 04:20 | NUR ---
RN OPEN NOTES RECEIVED PATIENT FROM ER VIA K[facility] WITH SPOUSE AT BEDSIDE. A/O X4. NO SIGNS OF DISTRESS OR DISCOMFORT. BREATHING EVEN AND UNLABORED. COMPLAINING OF PAIN 9/10 IN R ARM, WAS GIVEN MORPHINE @ 0320 IN ER. IV ACCESS IN R HAND PATENT AND INTACT, NO SIGNS OF REDNESS OR INFILTRATION. HAD JANELLE AV FISTULA AND L FEMORAL MARCELLUS CATH. ORIENTED PATIENT TO UNIT AND ROOM. PATIENT REFUSED COMPLETE BODY CHECK, NO SKIN ISSUES NOTED THAT I COULD SEE AT THIS TIME. BED IN LOW LOCKED POSITION WITH SIDE RAILS X2. CALL LIGHT WITHIN REACH. WILL CONTINUE TO MONITOR.
[2016-09-23 05:00] VITALS: BP 168/102
[2016-09-23] MEDS ORDERED: MORPHINE SULFATE INJ 2 MG/ML DISP.SYRIN IV PRN (05:30)
[2016-09-23] MEDS ORDERED: Z GUARD REMEDY 2 OZ OINT TP PRN (05:30)
[2016-09-23] MEDS ORDERED: ONDANSETRON HCL/PF 4 MG/2 ML VIAL IVP PRN (05:30)
[2016-09-23] MEDS ORDERED: ACETAMINOPHEN 325 MG TABLET PO PRN (05:30)
--- NOTE | 2016-09-23 07:20 | NUR ---
RECEIVED PATIENT IN BED, SLEEPING WITH SPOUSE. PT IS ALERT AND ORIENTED X 4, COMPLAINING OF PAIN 8/10. IV ACCESS ON RIGHT HAND INTACT AND PATENT. HAS JANELLE AV FISTULA AND L FEMORAL MARCELLUS CATH. BED IS IN LOW AND LOCKED POSITION, BED ALARM IS ON AND CALL LIGHT IS IN REACH. WILL CONTINUE TO MONITOR.
--- NOTE | 2016-09-23 07:53 | NUR ---
RN CLOSING NOTES PATIENT RESTING IN BED WITH SPOUSE AT BEDSIDE. A/O X4. NO SIGNS OF DISTRESS OR DISCOMFORT. BREATHING EVEN AND UNLABORED. IV ACCESS IN R HAND PATENT AND INTACT, NO SIGNS OF REDNESS OR INFILTRATION. HAD JANELLE AV FISTULA AND L FEMORAL MARCELLUS CATH. ALL NEEDS MET. NO SIGNIFICANT CHANGES. BED IN LOW LOCKED POSITION WITH SIDE RAILS X2. CALL LIGHT WITHIN REACH. ENDORSED TO AM SHIFT FOR NICOLAS.
[2016-09-23 08:00] VITALS: BP 158/95
[2016-09-23] MEDS ORDERED: VANCOMYCIN 500 MG in IV D5W 100ml IV SCH (08:00)
[2016-09-23] MEDS ORDERED: SECONDARY IV SET 1 EA INFUS.SET MC ONE (08:45)
[2016-09-23] MEDS ORDERED: APIXABAN 5 MG TABLET PO SCH (09:00)
[2016-09-23] MEDS ORDERED: LABETALOL HCL (100MG) 100 MG TABLET PO SCH (09:00)
[2016-09-23] MEDS: MORPHINE SULFATE INJ 4 MG/ML DISP.SYRIN IV PRN ×4 (09:03→23:16)
[2016-09-23] MEDS: SEVELAMER CARBONATE 800 MG TABLET PO SCH ×3 (09:03→18:10)
[2016-09-23] MEDS: NIFEdipine XL 60 MG TAB PO SCH ×2 (09:07→20:46)
[2016-09-23] MEDS: TOPIRAMATE 25 MG TABLET PO SCH ×2 (09:07→18:10)
[2016-09-23] MEDS: ASPIRIN 325 MG TABLET PO SCH (09:07)
[2016-09-23] MEDS: CARVEDILOL 12.5 MG TABLET PO SCH ×2 (09:08→20:46)
[2016-09-23] MEDS: hydrALAZINE HCL 50 MG TABLET PO SCH ×2 (09:08→18:09)
[2016-09-23] MEDS: SERTRALINE HCL 50 MG TABLET PO SCH (09:08)
[2016-09-23] MEDS: AMITRIPTYLINE HCL 25 MG TABLET PO SCH (09:12)
[2016-09-23] MEDS ORDERED: FEE PK DOSING 1 MIN EA MC ONE (09:19)
[2016-09-23] MEDS: APIXABAN 2.5 MG TABLET PO SCH ×2 (09:41→18:09)
[2016-09-23] MEDS ORDERED: VANCOMYCIN 500 MG in IV D5W 100 ML IV PRN (10:00)
--- NOTE | 2016-09-23 15:04 | NUR ---
PATIENT C/O ITCHING LEFT ARM, PER PATIENT SHE IS GETTING BENADRYL PRIOR DIALYSIS TREATMENT. INFORMED SCALLOP CUTTER MACHINE-JOSÉ LUIS WITH NEW ORDERS NOTED AND ACKNOWLEDGED.
[2016-09-23] MEDS: diphenhydrAMINE HCL 50 MG/ML VIAL IV PRN (15:09)
[2016-09-23 16:00] VITALS: BP 140/82
--- NOTE | 2016-09-23 18:34 | NUR ---
VANCOMYCIN RANDOM 18, INFORMED PHARMACY. SPOKE TO CHARY, INSTRUCTED TO HOLD DOSE OF VANCOMYCIN TODAY 09/23/16.
--- NOTE | 2016-09-23 18:46 | NUR ---
PATIENT IS IN BED, ALERT AND ORIENTED X 4. SPOUSE IS AT THE BEDSIDE. PT APPEARS TO HAVE NO SIGNS OF DISTRESS OF SHORTNESS OF BREATH. IV IN RIGHT HAND IS INTACT AND PATENT. HAS JANELLE AV FISTULA AND LEFT FEMORAL MARCELLUS CATHETER. BED IS IN LOW AND LOCKED POSITION, SIDE RAILS UP X2, CALL LIGHT IS IN REACH. WILL ENDORSE TO AGENCY SALES DIRECTOR NURSE FOR CONTINUITY OF CARE.
--- NOTE | 2016-09-23 19:10 | NUR ---
RN NOTE RECEIVED REPORT. PT AAOX4, NO C/O ANY PAIN OR DISCOMFORT AT THIS TIME. BREATHING NON-LABORED AND EVEN. SPOUSE AT BEDSIDE. CALL LIGHT IN REACH. WILL CONT TO MONITOR.
[2016-09-23 20:00] VITALS: BP 136/71
[2016-09-24] MEDS: diphenhydrAMINE HCL 50 MG/ML VIAL IV PRN ×3 (01:02→14:06)
--- NOTE | 2016-09-24 03:00 | NUR ---
RN NOTE NO DISTRESS NOTED AT THIS TIME. PT RESTING IN BED COMFORTABLY. WILL MONITOR.
[2016-09-24] MEDS: MORPHINE SULFATE INJ 4 MG/ML DISP.SYRIN IV PRN ×4 (04:45→17:29)
--- NOTE | 2016-09-24 06:38 | NUR ---
RN NOTE NO SIGNIFICANT CHANGES OVERNIGHT. NO S/S OF ANY DISTRESS AT THIS TIME, PT RESTING WITH EYES CLOSED. PAIN MANAGED WITH PRN MEDICATION T/O SHIFT- SOMEWHAT EFFECTIVE. LUE + LLE NOTED TO HAVE NON-PITTING EDEMA. IV INTACT AND PATENT. ALL NEEDS ATTENDED TO, WILL F/U WITH DAY SHIFT FOR NICOLAS.
[2016-09-24 06:45] LABS: BASOPHILS % (AUTO) 0.4 % (0.0-2.0); EOSINOPHILS # (AUTO) 0.3 /CMM (0.0-0.7); EOSINOPHILS % (AUTO) 8.4 % (0.0-6.0); HEMATOCRIT 24 % (33-45); HEMOGLOBIN 7.9 g/dL (11.5-14.8); LYMPHOCYTES # (AUTO) 1.1 /CMM (0.8-4.8); LYMPHOCYTES % (AUTO) 27.7 % (20.0-44.0); MEAN CORPUSCULAR HEMOGLOBIN 30 PG (26.0-33.0); MEAN CORPUSCULAR HGB CONC 33 g/dl (31.0-36.0); MEAN CORPUSCULAR VOLUME 91 fL (82-100); MONOCYTES # (AUTO) 0.3 /CMM (0.1-1.30); MONOCYTES % (AUTO) 8.5 % (2.0-12.0); NEUTROPHILS # (AUTO) 2.3 /CMM (1.8-8.9); PLATELET COUNT (AUTO) 159 /CMM (150-450); RDW COEFFICIENT OF VARIATION 19.4 (11.5-15.0); RED BLOOD CELL COUNT(AUTO) 2.61 MIL/uL (4.0-5.2); WHITE BLOOD COUNT (AUTO) 4.1 K/uL (4.3-11.0)
[2016-09-24 07:06] LABS: ALBUMIN 2.9 g/dL (3.4-5.0); BILIRUBIN,TOTAL 0.2 mg/dL (0.2-1.0); CALCIUM, SERUM 8.1 mg/dL (8.5-10.1); CREATININE 7.1 mg/dL (0.6-1.3); MAGNESIUM 2.2 mg/dL (1.8-2.4); POTASSIUM 3.5 mmol/L (3.5-5.1)
--- NOTE | 2016-09-24 07:15 | NUR ---
MS RN NOTES RECEIVED PATIENT IN BED, AWAKE, A/O X4. BREATHING EVEN AND NON LABORED, NO SOB NOTED. LEFT UPPER EXT AND LEFT LOWER EXT STILL SWELLING, ELEVATE WITH PILLOWS. NO C/O PAIN AT THIS TIME. CALL LIGHT WITHIN REACH.
[2016-09-24 08:00] VITALS: BP 127/63
[2016-09-24 08:07] VITALS: BP 127/63
[2016-09-24] MEDS: NIFEdipine XL 60 MG TAB PO SCH (08:15)
[2016-09-24] MEDS: SERTRALINE HCL 50 MG TABLET PO SCH (08:16)
[2016-09-24] MEDS: ASPIRIN 325 MG TABLET PO SCH (08:16)
[2016-09-24] MEDS: CARVEDILOL 12.5 MG TABLET PO SCH (08:16)
[2016-09-24] MEDS: AMITRIPTYLINE HCL 25 MG TABLET PO SCH (08:16)
[2016-09-24] MEDS: hydrALAZINE HCL 50 MG TABLET PO SCH ×2 (08:16→16:53)
[2016-09-24] MEDS: TOPIRAMATE 25 MG TABLET PO SCH ×2 (08:16→16:53)
[2016-09-24] MEDS: SEVELAMER CARBONATE 800 MG TABLET PO SCH ×3 (08:16→17:27)
[2016-09-24] MEDS: APIXABAN 2.5 MG TABLET PO SCH ×2 (08:17→16:53)
--- NOTE | 2016-09-24 13:44 | NUR ---
PATIENT TO BE DISCHARGED HOME ORDERED, PATIENT INFORMED.
[2016-09-24] MEDS ORDERED: SULF1TAB48 PO (13:57)
[2016-09-24 16:00] VITALS: BP 116/61
[2016-09-24 16:53] VITALS: BP 116/61
--- NOTE | 2016-09-24 18:16 | NUR ---
MS RN CLOSING NOTES PATIENT N BED, NOT IN DISTRESS. AMBULATORY WITH STEADY GAIT AND BALANCE. LEFT FEMORAL CATH INTACT, DRESSING IN PLACE, NO BLEEDING NOTED. DISCHARGE INSTRUCTION GIVEN TO THE PATIENT, VERBALIZED UNDERSTANDING. PRESCRIPTION MEDICATION PROVIDED TO THE PATIENT AND BELONGINGS CHECKED BY THE [facility]. PATIENT WILL BE PICK-UP BY HER -MARLYN KERNS. WILL ENDORSE TO GUIDANCE ADVISER RN FOR CONTINUITY OF CARE.
--- NOTE | 2016-09-24 19:20 | NUR ---
PER PATIENT HER IS NOT GOING TO PICK HER UP. JORGE SPOKE TO THE PATIENT EARLIER, PATIENT CAN BE SEND HOME VIA TAXI TO ADDRESS PROVIDED BY THE PATIENT, [id number] [facility] [id number]. PLATE DEVELOPER AND CHARGE NURSE IS AWARE. ENDORSE TO REAR ADMIRAL RN FOR CONTINUITY OF CARE.
--- NOTE | 2016-09-24 19:30 | NUR ---
RN NOTE RECEIVED REPORT. PT AAOX4, NO C/O OF ANY PAIN OR DISCOMFORT AT THIS TIME. PER DAY SHIFT REPORT, PT TO BE DISCHARGED HOME VIA TAXI, & PAPERWORK AND BELONGING CHECKLIST COMPLETE. AWAITING TAXI
--- NOTE | 2016-09-24 19:45 | NUR ---
RN NOTE ZAINAB ARRIVED. PT IV D/C'ED, LEFT WITH ALL BELONGINGS AND PAPERWORK. VSS. Addendum: 09/24/16 at 2035 by KATE HEARN RN PT REFUSED PICTURES, SHE WANTS TO GO HOME.
== END 2016-09-24 20:45 | disposition home or self-care (01) | DRG 466 ==
LOC: ER 01:30 → TELE 03:16 → MED 06:49
PROVIDERS: ADMIT Nurse Practitioner Acute Care; ATTEND Nurse Practitioner Acute Care
PROC: 5A1D00Z (ICD-10-PCS; principal; 2016-09-23)
DX: T82.7XXA Infection and inflammatory reaction due to other cardiac and vascular devices, implants and grafts, initial encounter (principal); N18.6 End stage renal disease; I12.0 Hypertensive chronic kidney disease with stage 5 chronic kidney disease or end stage renal disease; E11.22 Type 2 diabetes mellitus with diabetic chronic kidney disease; Z87.442 Personal history of urinary calculi; I82.C21 Chronic embolism and thrombosis of right internal jugular vein; L03.114 Cellulitis of left upper limb; Z87.891 Personal history of nicotine dependence; Z86.73 Personal history of transient ischemic attack (TIA), and cerebral infarction without residual deficits; Z99.2 Dependence on renal dialysis; D64.9 Anemia, unspecified; Z91.19 Patient's noncompliance with other medical treatment and regimen; Z76.5 Malingerer [conscious simulation]; Y84.9 Medical procedure, unspecified as the cause of abnormal reaction of the patient, or of later complication, without mention of misadventure at the time of the procedure; Y92.009 Unspecified place in unspecified non-institutional (private) residence as the place of occurrence of the external cause; Z79.01 Long term (current) use of anticoagulants; Z82.49 Family history of ischemic heart disease and other diseases of the circulatory system; Z83.3 Family history of diabetes mellitus; Z86.718 Personal history of other venous thrombosis and embolism
CPT/HCPCS: 36415; 80048-TC; 80053-TC; 80061-TC; 80202-TC; 83605-TC; 83735-TC; 84100-TC; 85025-TC; 87040-TC; 87081-TC; 90935-TC; 93971-TC; A4606; J1200; J2270; J2405; J3370; J7060; Z7610

== ENCOUNTER 2016-09-28 09:38 | Inpatient (IN) | payer MEDICAID ==
[~2016-09-28] VITALS: Ht 167.6 cm; Wt 99.8 kg
[~2016-09-28 09:38] MED LIST changes: +SULF1TAB48 PO
[2016-09-28] MEDS ORDERED: HYDROMORPHONE 1 MG/1 ML DISP.SYRIN ONE (09:46)
[2016-09-28] MEDS ORDERED: HYDROMORPHONE 1 MG/1 ML DISP.SYRIN IV ONE (10:00)
[2016-09-28] MEDS ORDERED: VANCOMYCIN 1 GM in IV D5W 250 ML IV ONE (10:00)
[2016-09-28] MEDS ORDERED: PIPERACILLIN /TAZOBACTAM 3.375 G in IV D5W 50 ML IV ONE (10:00)
[2016-09-28 10:04] LABS: BASOPHILS # (AUTO) 0.3 /CMM (0.0-0.2); BASOPHILS % (AUTO) 3.5 % (0.0-2.0); EOSINOPHILS # (AUTO) 0.7 /CMM (0.0-0.7); EOSINOPHILS % (AUTO) 8.9 % (0.0-6.0); HEMATOCRIT 27 % (33-45); HEMOGLOBIN 8.9 g/dL (11.5-14.8); LYMPHOCYTES # (AUTO) 1.1 /CMM (0.8-4.8); LYMPHOCYTES % (AUTO) 12.8 % (20.0-44.0); MEAN CORPUSCULAR HEMOGLOBIN 30 PG (26.0-33.0); MEAN CORPUSCULAR HGB CONC 33 g/dl (31.0-36.0); MEAN CORPUSCULAR VOLUME 90 fL (82-100); MONOCYTES # (AUTO) 0.7 /CMM (0.1-1.30); MONOCYTES % (AUTO) 8.8 % (2.0-12.0); NEUTROPHILS # (AUTO) 5.5 /CMM (1.8-8.9); PLATELET COUNT (AUTO) 181 /CMM (150-450); RDW COEFFICIENT OF VARIATION 17.8 (11.5-15.0); RED BLOOD CELL COUNT(AUTO) 2.99 MIL/uL (4.0-5.2); WHITE BLOOD COUNT (AUTO) 8.3 K/uL (4.3-11.0)
[2016-09-28] MEDS ORDERED: IV SET PRIMARY 1 EA INFUS.SET MC ONE (10:10)
[2016-09-28] MEDS ORDERED: IV SET PRIMARY PUMP SET 1 EA INFUS.SET MC ONE ×3 (10:10→16:56)
[2016-09-28 10:18] LABS: ALANINE AMINOTRANSFERASE 14 U/L (12-78); ALBUMIN 3.8 g/dL (3.4-5.0); ALKALINE PHOSPHATASE 57 U/L (46-116); ASPARTATE AMINOTRANSFERASE 15 U/L (15-37); BILIRUBIN,DIRECT 0.1 mg/dL (0.0-0.2); BILIRUBIN,TOTAL 0.4 mg/dL (0.2-1.0); CALCIUM, SERUM 8.7 mg/dL (8.5-10.1); CARBON DIOXIDE 23 mmol/L (21-32); CHLORIDE 104 mmol/L (98-107); GLUCOSE 97 mg/dL (74-106); POTASSIUM 3.5 mmol/L (3.5-5.1); SODIUM SERUM 139 mmol/L (136-145); TOTAL PROTEIN, SERUM 8.4 g/dL (6.4-8.2); UREA NITROGEN, BLOOD 48 mg/dL (7-18)
[2016-09-28 10:20] LABS: CREATININE 8.9 mg/dL (0.6-1.3); TROPONIN I < 0.017 ng/mL (0.00-0.056)
[2016-09-28 10:47] LABS: INR 1.04 (0.87-1.13); PROTHROMBIN TIME 11.2 SECS (9.5-12.7)
[2016-09-28 11:30] VITALS: BP 113/53
[2016-09-28 12:00] VITALS: BP 113/53
[2016-09-28] MEDS ORDERED: HYDROCODONE/APAP 10/325MG 1 EA TABLET PO PRN (12:00)
[2016-09-28] MEDS ORDERED: ONDANSETRON HCL/PF 4 MG/2 ML VIAL IVP PRN (12:00)
[2016-09-28] MEDS ORDERED: Z GUARD REMEDY 2 OZ OINT TP PRN (12:00)
[2016-09-28] MEDS ORDERED: APIXABAN 5 MG TABLET PO SCH (12:00)
[2016-09-28] MEDS ORDERED: HYDROCODONE/APAP 5/325MG 1 EACH TABLET PO PRN (12:00)
[2016-09-28] MEDS ORDERED: ACETAMINOPHEN 325 MG TABLET PO PRN (12:00)
[2016-09-28] MEDS ORDERED: MAGNESIUM HYDROXIDE 30 ML UDC PO PRN (12:00)
[2016-09-28] MEDS ORDERED: ZOLPIDEM TARTRATE 5 MG TABLET PO PRN (12:00)
[2016-09-28] MEDS ORDERED: MAG HYDROX/AL HYDROX/SIMETH 30 ML UDC PO PRN (12:00)
[2016-09-28] MEDS: hydrALAZINE HCL 50 MG TABLET PO SCH ×2 (13:00→21:00)
[2016-09-28] MEDS ORDERED: AMITRIPTYLINE HCL 25 MG TABLET PO SCH (13:00)
[2016-09-28] MEDS: LABETALOL HCL (100MG) 100 MG TABLET PO SCH (13:00)
[2016-09-28] MEDS: CARVEDILOL 12.5 MG TABLET PO SCH ×2 (13:00→21:14)
[2016-09-28] MEDS: SEVELAMER CARBONATE 800 MG TABLET PO SCH ×2 (13:23→18:43)
[2016-09-28] MEDS: TOPIRAMATE 25 MG TABLET PO SCH ×2 (13:44→21:00)
[2016-09-28] MEDS: ASPIRIN 325 MG TABLET PO SCH (13:44)
[2016-09-28] MEDS: SERTRALINE HCL 50 MG TABLET PO SCH (13:45)
[2016-09-28 16:00] VITALS: BP 113/67
[2016-09-28] MEDS: AMITRIPTYLINE HCL 25 MG TABLET PO SCH (16:37)
[2016-09-28] MEDS ORDERED: FEE PK DOSING 1 MIN EA MC ONE (16:45)
[2016-09-28] MEDS ORDERED: IV NS 0.9% 250 ML IV ONE (16:55)
[2016-09-28] MEDS ORDERED: SECONDARY IV SET 1 EA INFUS.SET MC ONE (16:56)
[2016-09-28] MEDS: HYDROMORPHONE INJ 2 MG/ML DISP.SYRIN IV PRN ×2 (17:04→23:48)
[2016-09-28] MEDS: PIPERACILLIN /TAZOBACTAM 2.25 G in IV D5W 50 ML IV SCH (18:43)
[2016-09-28] MEDS: APIXABAN 2.5 MG TABLET PO SCH (18:50)
[2016-09-28 20:00] VITALS: BP 115/63
[2016-09-28] MEDS: NIFEdipine XL 60 MG TAB PO SCH (21:00)
[2016-09-29] MEDS: PIPERACILLIN /TAZOBACTAM 2.25 G in IV D5W 50 ML IV SCH ×2 (01:49→10:25)
[2016-09-29] MEDS: HYDROMORPHONE INJ 2 MG/ML DISP.SYRIN IV PRN ×5 (06:02→23:59)
[2016-09-29 06:47] LABS: BASOPHILS % (AUTO) 0.4 % (0.0-2.0); EOSINOPHILS # (AUTO) 0.6 /CMM (0.0-0.7); EOSINOPHILS % (AUTO) 14.6 % (0.0-6.0); HEMATOCRIT 25 % (33-45); HEMOGLOBIN 8.4 g/dL (11.5-14.8); LYMPHOCYTES # (AUTO) 1.1 /CMM (0.8-4.8); LYMPHOCYTES % (AUTO) 24.2 % (20.0-44.0); MEAN CORPUSCULAR HEMOGLOBIN 30 PG (26.0-33.0); MEAN CORPUSCULAR HGB CONC 33 g/dl (31.0-36.0); MEAN CORPUSCULAR VOLUME 91 fL (82-100); MONOCYTES # (AUTO) 0.3 /CMM (0.1-1.30); NEUTROPHILS # (AUTO) 2.4 /CMM (1.8-8.9); NEUTROPHILS % (AUTO) 53.8 % (43.0-81.0); PLATELET COUNT (AUTO) 135 /CMM (150-450); RDW COEFFICIENT OF VARIATION 19.1 (11.5-15.0); RED BLOOD CELL COUNT(AUTO) 2.75 MIL/uL (4.0-5.2); WHITE BLOOD COUNT (AUTO) 4.4 K/uL (4.3-11.0)
[2016-09-29 07:34] LABS: CALCIUM, SERUM 7.9 mg/dL (8.5-10.1); PHOSPHORUS 6.7 mg/dL (2.5-4.9); POTASSIUM 3.9 mmol/L (3.5-5.1)
[2016-09-29 07:42] LABS: CREATININE 7.9 mg/dL (0.6-1.3)
[2016-09-29 08:00] VITALS: BP 113/70
[2016-09-29] MEDS: hydrALAZINE HCL 50 MG TABLET PO SCH ×2 (09:00→17:01)
[2016-09-29] MEDS: SEVELAMER CARBONATE 800 MG TABLET PO SCH ×3 (09:35→17:01)
[2016-09-29] MEDS: PANTOPRAZOLE 40 MG TABLET.DR PO SCH (09:35)
[2016-09-29] MEDS: NIFEdipine XL 60 MG TAB PO SCH ×2 (09:35→21:32)
[2016-09-29] MEDS: ASPIRIN 325 MG TABLET PO SCH (09:35)
[2016-09-29] MEDS: SERTRALINE HCL 50 MG TABLET PO SCH (09:36)
[2016-09-29] MEDS: CARVEDILOL 12.5 MG TABLET PO SCH ×2 (09:36→21:32)
[2016-09-29] MEDS: TOPIRAMATE 25 MG TABLET PO SCH ×2 (09:36→17:02)
[2016-09-29] MEDS: LABETALOL HCL (100MG) 100 MG TABLET PO SCH (09:37)
[2016-09-29] MEDS: APIXABAN 2.5 MG TABLET PO SCH ×2 (09:38→17:04)
[2016-09-29] MEDS: AMITRIPTYLINE HCL 25 MG TABLET PO SCH (09:38)
[2016-09-29] MEDS: NEO/BACI/POLY B/HC OINT (15GM) 15 GM TUBE TP SCH ×3 (09:38→17:02)
[2016-09-29 16:00] VITALS: BP 112/70
[2016-09-29] MEDS ORDERED: SECONDARY IV SET 1 EA INFUS.SET MC ONE (16:39)
[2016-09-29] MEDS: VANCOMYCIN 500 MG in IV D5W 100 ML IV PRN (16:59)
[2016-09-29 19:31] LABS: APPEARANCE,URINE CLEAR (CLEAR); BILIRUBIN,URINE NEGATIVE (NEGATIVE); BLOOD, URINE 2+ Ery/uL (NEGATIVE); COLOR,URINE YELLOW (YELLOW); KETONES,URINE NEGATIVE (NEGATIVE); LEUKOCYTE ESTERASE ,URINE NEGATIVE (NEGATIVE); NITRITE, URINE NEGATIVE (NEGATIVE); PROTEIN,URINE 2+ mg/dl (NEGATIVE); UGLUCOSE NEGATIVE (NEGATIVE); UROBILINOGEN,URINE 0.2 EU/dL (0.2)
[2016-09-29 19:40] LABS: BACTERIA,URINE Few /HPF (None Seen); RBC,URINE 21-50 /HPF (0-2); SQUAMOUS EPITHELIAL CELL,UR Moderate /HPF (None Seen)
[2016-09-29 20:00] VITALS: BP 117/68
[2016-09-29] MEDS: LEVOFLOXACIN (250MG) 250 MG TABLET PO SCH (20:12)
[2016-09-30] MEDS: HYDROMORPHONE INJ 2 MG/ML DISP.SYRIN IV PRN ×6 (04:21→23:21)
[2016-09-30 05:54] LABS: CREATININE 7.6 mg/dL (0.6-1.3)
[2016-09-30 08:00] VITALS: BP 115/62
[2016-09-30] MEDS: ASPIRIN 325 MG TABLET PO SCH (08:08)
[2016-09-30] MEDS: SERTRALINE HCL 50 MG TABLET PO SCH (08:09)
[2016-09-30] MEDS: PANTOPRAZOLE 40 MG TABLET.DR PO SCH (08:09)
[2016-09-30] MEDS: SEVELAMER CARBONATE 800 MG TABLET PO SCH ×3 (08:09→17:07)
[2016-09-30] MEDS: TOPIRAMATE 25 MG TABLET PO SCH ×2 (08:09→17:07)
[2016-09-30] MEDS: NIFEdipine XL 60 MG TAB PO SCH ×2 (08:09→23:21)
[2016-09-30] MEDS: hydrALAZINE HCL 50 MG TABLET PO SCH ×2 (08:10→17:07)
[2016-09-30] MEDS: LABETALOL HCL (100MG) 100 MG TABLET PO SCH (08:10)
[2016-09-30] MEDS: CARVEDILOL 12.5 MG TABLET PO SCH ×2 (08:11→21:11)
[2016-09-30] MEDS: NEO/BACI/POLY B/HC OINT (15GM) 15 GM TUBE TP SCH ×3 (08:15→17:10)
[2016-09-30] MEDS: APIXABAN 2.5 MG TABLET PO SCH ×2 (08:16→17:07)
[2016-09-30] MEDS: AMITRIPTYLINE HCL 25 MG TABLET PO SCH (08:16)
[2016-09-30 16:00] VITALS: BP 114/56
[2016-09-30 20:00] VITALS: BP 113/68
[2016-09-30] MEDS ORDERED: HYDROMORPHONE 1 MG/1 ML DISP.SYRIN IM/IV PRN (21:00)
[2016-10-01] VITALS (7 sets, daily range): BP systolic 103–135; BP diastolic 58–76
[2016-10-01] MEDS: HYDROMORPHONE INJ 2 MG/ML DISP.SYRIN IV PRN ×2 (03:32→08:07)
[2016-10-01 07:31] LABS: BASOPHILS % (AUTO) 0.3 % (0.0-2.0); EOSINOPHILS # (AUTO) 0.4 /CMM (0.0-0.7); EOSINOPHILS % (AUTO) 8.2 % (0.0-6.0); HEMATOCRIT 22 % (33-45); LYMPHOCYTES # (AUTO) 1.1 /CMM (0.8-4.8); LYMPHOCYTES % (AUTO) 23.6 % (20.0-44.0); MEAN CORPUSCULAR HEMOGLOBIN 30 PG (26.0-33.0); MEAN CORPUSCULAR HGB CONC 32 g/dl (31.0-36.0); MEAN CORPUSCULAR VOLUME 91 fL (82-100); MONOCYTES # (AUTO) 0.3 /CMM (0.1-1.30); MONOCYTES % (AUTO) 6.9 % (2.0-12.0); NEUTROPHILS # (AUTO) 2.7 /CMM (1.8-8.9); PLATELET COUNT (AUTO) 146 /CMM (150-450); RDW COEFFICIENT OF VARIATION 18.3 (11.5-15.0); RED BLOOD CELL COUNT(AUTO) 2.39 MIL/uL (4.0-5.2); WHITE BLOOD COUNT (AUTO) 4.4 K/uL (4.3-11.0)
[2016-10-01 07:49] LABS: CALCIUM, SERUM 7.3 mg/dL (8.5-10.1); POTASSIUM 4.1 mmol/L (3.5-5.1)
[2016-10-01 07:50] LABS: CREATININE 8.5 mg/dL (0.6-1.3)
[2016-10-01] MEDS: ASPIRIN 325 MG TABLET PO SCH (08:05)
[2016-10-01] MEDS: TOPIRAMATE 25 MG TABLET PO SCH ×2 (08:06→17:58)
[2016-10-01] MEDS: SEVELAMER CARBONATE 800 MG TABLET PO SCH ×3 (08:06→17:56)
[2016-10-01] MEDS: PANTOPRAZOLE 40 MG TABLET.DR PO SCH (08:06)
[2016-10-01] MEDS: SERTRALINE HCL 50 MG TABLET PO SCH (08:06)
[2016-10-01] MEDS: NEO/BACI/POLY B/HC OINT (15GM) 15 GM TUBE TP SCH ×3 (08:16→18:04)
[2016-10-01] MEDS: hydrALAZINE HCL 50 MG TABLET PO SCH ×2 (08:16→18:00)
[2016-10-01] MEDS: CARVEDILOL 12.5 MG TABLET PO SCH (08:17)
[2016-10-01] MEDS: NIFEdipine XL 60 MG TAB PO SCH (08:17)
[2016-10-01] MEDS: LABETALOL HCL (100MG) 100 MG TABLET PO SCH (08:17)
[2016-10-01] MEDS: AMITRIPTYLINE HCL 25 MG TABLET PO SCH (09:17)
[2016-10-01] MEDS: APIXABAN 2.5 MG TABLET PO SCH ×2 (09:17→17:56)
[2016-10-01] MEDS ORDERED: BLOOD IV SET 1 EA INFUS.SET MC ONE (12:30)
[2016-10-01] MEDS ORDERED: IV NS 0.9% 250 ML IV ONE (14:30)
[2016-10-01] MEDS ORDERED: SECONDARY IV SET 1 EA INFUS.SET MC ONE (14:30)
[2016-10-01] MEDS ORDERED: IV SET PRIMARY PUMP SET 1 EA INFUS.SET MC ONE (14:31)
[2016-10-01] MEDS: VANCOMYCIN 500 MG in IV D5W 100 ML IV PRN (14:39)
[2016-10-01] MEDS ORDERED: ALTEPLASE CATHFLO 2 MG/VIAL XX ONE (15:00)
[2016-10-01] MEDS ORDERED: HYDROMORPHONE 1 MG/1 ML DISP.SYRIN IM PRN (17:52)
[2016-10-01] MEDS ORDERED: HYDROMORPHONE 1 MG/1 ML DISP.SYRIN IV PRN (18:00)
[2016-10-01] MEDS: LEVOFLOXACIN (250MG) 250 MG TABLET PO SCH (18:05)
== END 2016-10-01 19:10 | disposition left against medical advice (07) | DRG 383 ==
LOC: ER 09:40 → MEDSG2 11:11
PROC: 5A1D60Z (ICD-10-PCS; principal; 2016-09-28)
PROC: 30233N1 Transfusion of Nonautologous Red Blood Cells into Peripheral Vein, Percutaneous Approach (ICD-10-PCS; 2016-10-01)
DX: L03.114 Cellulitis of left upper limb (principal); N18.6 End stage renal disease; I12.0 Hypertensive chronic kidney disease with stage 5 chronic kidney disease or end stage renal disease; E11.22 Type 2 diabetes mellitus with diabetic chronic kidney disease; Z99.2 Dependence on renal dialysis; Z91.19 Patient's noncompliance with other medical treatment and regimen; Z87.891 Personal history of nicotine dependence; Z86.73 Personal history of transient ischemic attack (TIA), and cerebral infarction without residual deficits; D64.9 Anemia, unspecified; Z87.442 Personal history of urinary calculi; I82.721 Chronic embolism and thrombosis of deep veins of right upper extremity; Z79.01 Long term (current) use of anticoagulants; Z76.5 Malingerer [conscious simulation]; E66.01 Morbid (severe) obesity due to excess calories; Z68.35 Body mass index [BMI] 35.0-35.9, adult
CPT/HCPCS: 36415; 71010-TC; 73590-TC; 80048-TC; 80076-TC; 80202-TC; 81000-TC; 83605-TC; 83735-TC; 84100-TC; 84484-TC; 85025-TC; 85730-TC; 86850-TC; 86921-TC; 87040-TC; 87081-TC; 87086-TC; 90935-TC; 93930-TC; 93971-TC; A4606; J1170; J2543; J2997; J3370; J7050; J7060; P9016-BL; Z7610